=== PATIENT | male | born 1965 | race Caucasian/White ===

== ENCOUNTER 2017-12-06 04:12 | Emergency (ER) | payer BC, OTHER ==
[2017-12-06] MEDS ORDERED: FAMOTIDINE 20 MG/2 ML VIAL IV ONE (04:39)
[2017-12-06] MEDS ORDERED: NA CHLORIDE 0.9% 1,000 ML ONE ×3 (04:40→05:53)
[2017-12-06 04:50] LABS: Absolute Lymphocytes (CBC) 3.6 K/uL (0.7-4.9); Absolute Neutrophil 7.9 K/uL (1.8-8.0); Basophils % 1.2 % (0-1.3); MCH 29.8 pg (27.0-35.0); MCV 91.8 fL (80-100); MPV 9.3 fL (7.6-11.3); Monocytes % 8.1 % (3.3-12.3); RBC Red Blood Cell Count 5.67 M/uL (4.33-5.43)
[2017-12-06] MEDS ORDERED: ONDANSETRON 4 MG/2 ML VIAL ONE (04:55)
[2017-12-06 05:27] LABS: Bicarbonate 19 mEq/L (21-31); Glucose Level 150 mg/dL (65-120); Lipase 27 U/L (22-51); Potassium 4.2 mEq/L (3.6-5.0); Sodium Level 141 mEq/L (135-145)
[2017-12-06 05:33] LABS: ALT/SGPT 30 IU/L (10-60); AST/SGOT 29 IU/L (10-42); Albumin 4.2 g/dL (3.2-5.5); Alkaline Phosphatase 82 IU/L (42-121); BUN Blood Urea Nitrogen 9 mg/dL (6-20); Bilirubin Direct 0.1 mg/dL (0-0.2); Bilirubin Total 0.5 mg/dL (0.3-1.2); Glomerular Filtration Rate > 90 mL/min (=/>90); Protein, Total 8.4 g/dL (6.0-8.3)
[2017-12-06] MEDS ORDERED: LORazepam 2 MG/ML VIAL ONE (05:38)
[2017-12-06] MEDS ORDERED: FENTANYL CITR 100 MCG/2 ML ONE (06:01)
--- NOTE | 2017-12-06 06:53 | EDPHYS ---
Physician Documentation [facility] Name: Osman Prasad Age: 52 yrs Sex: Male : 1965 Arrival Date: 12/06/2017 Time: 04:14 Bed 16 Private MD: Kiko Wright T ED Physician Daniel Em HPI: 12/06 05:10 This 52 yrs old Male presents to ER via Ambulatory with complaints of gs Vomiting - Blood. 05:10 The patient presents to the emergency department with nausea, vomiting, that is gs intermittent, described as specks of blood and yellow emesis. Onset: The symptoms/episode began/occurred yesterday. Possible causes: etoh abuse. The symptoms are aggravated by nothing. The symptoms are alleviated by nothing. Associated signs and symptoms: Pertinent negatives: abdominal pain, fever. Severity of symptoms: At their worst the symptoms were moderate in the emergency department the symptoms have improved moderately. The patient has experienced similar episodes in the past, a few times. The patient has not recently seen a physician. Historical: - Allergies: 04:31 No Known Allergies; aa1 - Home Meds: 04:31 unknown BP med [Active]; aa1 - PMHx: 04:31 Hypertension; aa1 - PSHx: 04:31 Hernia repair; aa1 - Immunization history:: Flu vaccine is not up to date. - Social history:: Smoking status: Patient uses tobacco products, smokes one pack cigarettes per day. ROS: 05:10 All other systems are negative. gs Exam: 05:10 Head/Face: Normocephalic, atraumatic. Eyes: Pupils equal round and reactive to light, gs extra-ocular motions intact. Lids and lashes normal. Conjunctiva and sclera are non-icteric and not injected. Cornea within normal limits. Periorbital areas with no swelling, redness, or edema. ENT: Nares patent. No nasal discharge, no septal abnormalities noted. Tympanic membranes are normal and external auditory canals are clear. Oropharynx with no redness, swelling, or masses, exudates, or evidence of obstruction, uvula midline. Mucous membranes moist. Neck: Trachea midline, no thyromegaly or masses palpated, and no cervical lymphadenopathy. Supple, full range of motion without nuchal rigidity, or vertebral point tenderness. No Meningismus. Chest/axilla: Normal chest wall appearance and motion. Nontender with no deformity. No lesions are appreciated. Respiratory: Lungs have equal breath sounds bilaterally, clear to auscultation and percussion. No rales, rhonchi or wheezes noted. No increased work of breathing, no retractions or nasal flaring. Back: No spinal tenderness. No costovertebral tenderness. Full range of motion. Skin: Warm, dry with normal turgor. Normal color with no rashes, no lesions, and no evidence of cellulitis. MS/ Extremity: Pulses equal, no cyanosis. Neurovascular intact. Full, normal range of motion. Neuro: Awake and alert, GCS 15, oriented to person, place, time, and situation. Cranial nerves II-XII grossly intact. Motor strength 5/5 in all extremities. Sensory grossly intact. Cerebellar exam normal. Normal gait. 05:10 Constitutional: The patient appears alert, awake, uncomfortable. 05:10 Cardiovascular: Rate: tachycardic, Rhythm: regular, Pulses: no pulse deficits are appreciated, Heart sounds: normal. 05:10 Abdomen/GI: Palpation: mild abdominal tenderness, in all quadrants, rebound tenderness, is not appreciated. Vital Signs: 04:31 BP 139 / 102; Pulse 126; Resp 20; Temp 97.9; Pulse Ox 96% on R/A; Weight 83.91 kg; aa1 Height 5 ft. 6 in. (167.64 cm); Pain 8/10; 06:00 BP 162 / 109; Pulse 107; Resp 16; Temp 98.2; Pulse Ox 95% on R/A; ag2 06:36 BP 141 / 97; Pulse 97; Resp 16; Pulse Ox 96% on R/A; Pain 0/10; ag2 07:13 BP 141 / 96; Pulse 97; Resp 18; Pulse Ox 99% on R/A; ea 04:31 Body Mass Index 29.86 (83.91 kg, 167.64 cm) aa1 MDM: 04:31 Patient medically screened. 05:10 Differential diagnosis: gastritis, pancreatitis, gastroenteritis, pud, variceal gs bleeding. Data reviewed: vital signs, nurses notes. 12/06 04:34 Order name: Basic Metabolic Panel; Complete Time: 05:38 gs 12/06 04:34 Order name: CBC with Diff; Complete Time: 05:38 12/06 04:34 Order name: Hepatic Function; Complete Time: 05:38 12/06 04:34 Order name: Lipase; Complete Time: 05:38 12/06 05:54 Order name: CT Abd/Pelvis - Without Cont 12/06 04:34 Order name: IV Saline Lock; Complete Time: 04:45 gs 12/06 04:34 Order name: Labs collected and sent; Complete Time: 04:45 gs Administered Medications: 04:43 Drug: Pepcid 20 mg Route: IVP; Site: left hand; ea 06:08 Follow up: Response: No adverse reaction ea 04:44 Drug: NS 0.9% 1000 ml Route: IV; Rate: 1 bolus; Site: left hand; ea 05:55 Follow up: Response: No adverse reaction; IV Status: Completed infusion; IV Intake: ea 1000ml 05:04 Drug: Zofran 4 mg Route: IVP; Site: left antecubital; ea 06:08 Follow up: Response: No adverse reaction ea 05:45 Drug: Ativan 1 mg Route: IVP; Site: left hand; ea 06:09 Follow up: Response: No adverse reaction ea 05:59 Drug: NS 0.9% 1000 ml Route: IV; Rate: 1 bolus; Site: left hand; ea 07:11 Follow up: Response: No adverse reaction; IV Status: Completed infusion; IV Intake: ea 1000ml 06:00 Drug: Ativan 1 mg Route: IVP; Site: left hand; ea 06:09 Follow up: Response: No adverse reaction ea 06:07 Drug: fentaNYL (PF) 50 mcg Route: IVP; Site: left hand; ea 07:12 Follow up: Response: No adverse reaction; Pain is decreased ea Disposition: 12/06/17 06:52 Discharged to Home. Impression: Gastritis, unspecified, with bleeding. - Condition is Stable. - Discharge Instructions: Gastritis, Adult, Alcohol Abuse and Nutrition. - Prescriptions for Pepcid 20 mg Oral Tablet - take 1 tablet by ORAL route every 12 hours for 10 days; 60 tablet. - Medication Reconciliation Form, Thank You Letter, Antibiotic Education, Prescription Opioid Use, SBAR form form. - Follow up: Demetria Isaac; When: 2 - 3 days; Reason: Re-evaluation by your physician. - Problem is an acute exacerbation. - Symptoms have improved. Signatures: Dispatcher [employer] EDMS Reis Elvie, RN RN aa1 Karina Soria RN RN ea Daniel Em MD MD gs
--- NOTE | 2017-12-06 06:53 | ER ---
Nurse's Notes [facility] Name: Osman Prasad Age: 52 yrs Sex: Male : 1965 Arrival Date: 12/06/2017 Time: 04:14 Bed 16 Private MD: Kiko Wright T Diagnosis: Gastritis, unspecified, with bleeding Presentation: 12/06 04:28 Presenting complaint: Patient states: he had been drinking rather heavily last night aa1 and began having significant upper abd pain and vomiting around midnight. Reports seeing blood in his vomit as well. Transition of care: patient was not received from another setting of care. Onset of symptoms was December 06, 2017. Care prior to arrival: None. 04:28 Method Of Arrival: Ambulatory aa1 04:28 Acuity: ISIS 3 aa1 Triage Assessment: 04:31 General: Appears in no apparent distress. uncomfortable, Behavior is calm, cooperative, aa1 appropriate for age. Historical: - Allergies: 04:31 No Known Allergies; aa1 - Home Meds: 04:31 unknown BP med [Active]; aa1 - PMHx: 04:31 Hypertension; aa1 - PSHx: 04:31 Hernia repair; aa1 - Immunization history:: Flu vaccine is not up to date. - Social history:: Smoking status: Patient uses tobacco products, smokes one pack cigarettes per day. Screenin:45 Abuse screen: Denies threats or abuse. Nutritional screening: No deficits noted. ea Tuberculosis screening: No symptoms or risk factors identified. Fall Risk None identified. Assessment: 04:41 General: Appears in no apparent distress. ill, Behavior is cooperative, anxious, Smells ag2 of alcohol. Pain: Complains of pain in abdomen Pain does not radiate. Pain currently is 8 out of 10 on a pain scale. Quality of pain is described as aching, Pain began Patient stated that " I have been dealing with this abdominal pain for the last 3 years". Is intermittent. Neuro: Level of Consciousness is awake, alert, obeys commands, Oriented to person, place, time, situation, Compound Filler are equal bilaterally Moves all extremities. Cardiovascular: Heart tones S1 S2 present Capillary refill < 3 seconds Pulses are all present. Respiratory: Airway is patent Breath sounds are clear bilaterally. GI: No signs and/or symptoms were reported involving the gastrointestinal system. Abdomen is round Pt is actively vomiting clear fluid, Abd is soft X 4 quads Abdomen is tender to palpation X 4 quads. Reports nausea, vomiting, Patient currently denies diarrhea. : No signs and/or symptoms were reported regarding the genitourinary system. 06:01 Reassessment: Patient laying in bed with eyes closed. No s/s of distress. mother at ag2 bedside. Call light within reach, bed low and locked. . 07:15 Reassessment: Patient and/or family updated on plan of care and expected duration. Pain ea level reassessed. Patient is alert, oriented x 3, equal unlabored respirations, skin warm/dry/pink. Discharge instructions given to patient, verbalized the understanding of instructions. Vital Signs: 04:31 BP 139 / 102; Pulse 126; Resp 20; Temp 97.9; Pulse Ox 96% on R/A; Weight 83.91 kg; aa1 Height 5 ft. 6 in. (167.64 cm); Pain 8/10; 06:00 BP 162 / 109; Pulse 107; Resp 16; Temp 98.2; Pulse Ox 95% on R/A; ag2 06:36 BP 141 / 97; Pulse 97; Resp 16; Pulse Ox 96% on R/A; Pain 0/10; ag2 07:13 BP 141 / 96; Pulse 97; Resp 18; Pulse Ox 99% on R/A; ea 04:31 Body Mass Index 29.86 (83.91 kg, 167.64 cm) aa1 ED Course: 04:14 Patient arrived in ED. am2 04:14 Kiko Wright MD is Private Physician. am2 04:23 Daniel Em MD is Attending Physician. gs 04:30 Triage completed. aa1 04:31 Arm band placed on left wrist. Patient placed in an exam room, on a stretcher. aa1 04:35 Inserted saline lock: 20 gauge in right hand, using aseptic technique. Blood collected. ea 04:40 Guillermina Preciado is Primary Nurse. ag2 04:46 Patient has correct armband on for positive identification. Bed in low position. Call ea light in reach. Side rails up X2. 04:50 No provider procedures requiring assistance completed. ag2 06:27 CT Abd/Pelvis - Without Cont In Process Unspecified. EDMS 06:52 Demetria Isaac MD is Referral Physician. gs 07:05 IV discontinued. ag2 Administered Medications: 04:43 Drug: Pepcid 20 mg Route: IVP; Site: left hand; ea 06:08 Follow up: Response: No adverse reaction ea 04:44 Drug: NS 0.9% 1000 ml Route: IV; Rate: 1 bolus; Site: left hand; ea 05:55 Follow up: Response: No adverse reaction; IV Status: Completed infusion; IV Intake: ea 1000ml 05:04 Drug: Zofran 4 mg Route: IVP; Site: left antecubital; ea 06:08 Follow up: Response: No adverse reaction ea 05:45 Drug: Ativan 1 mg Route: IVP; Site: left hand; ea 06:09 Follow up: Response: No adverse reaction ea 05:59 Drug: NS 0.9% 1000 ml Route: IV; Rate: 1 bolus; Site: left hand; ea 07:11 Follow up: Response: No adverse reaction; IV Status: Completed infusion; IV Intake: ea 1000ml 06:00 Drug: Ativan 1 mg Route: IVP; Site: left hand; ea 06:09 Follow up: Response: No adverse reaction ea 06:07 Drug: fentaNYL (PF) 50 mcg Route: IVP; Site: left hand; ea 07:12 Follow up: Response: No adverse reaction; Pain is decreased ea Intake: 05:55 IV: 1000ml; Total: 1000ml. ea 07:11 IV: 1000ml; Total: 2000ml. ea Outcome: 06:52 Discharge ordered by . 07:05 Discharged to home ambulatory, with family. ag2 07:05 Condition: stable 07:05 Discharge instructions given to patient, family, Instructed on discharge instructions, follow up and referral plans. 07:16 Patient left the ED. ea Signatures: Dispatcher [employer] EDMS Elvie Reis RN RN aa1 Shabnam Suero am2 Karina Soria RN RN ea Starr, Gregory, MD MD gs Garcia, Athena ag2
[2017-12-06 07:24] VITALS: TEMP 98.2
[2017-12-06 07:26] VITALS: BP 141/96; O2SAT 99
--- NOTE | 2017-12-06 08:40 | RAD REPORT ---
EXAM DESCRIPTION: CT - Abdomen Pelvis Wo Contrast - 12/06/2017 6:57 am CLINICAL HISTORY: Abdominal pain. COMPARISON: None TECHNIQUE: CT imaging of the abdomen and pelvis was performed without contrast. Solid organ, bowel a nd vascular assessment is limited due to lack of IV and oral contrast. All CT scans are performed using dose optimization technique as appropriate and may include automated exposure control or mA/KV adjustment according to patient size. FINDINGS: The lower lung nguyen are clear.Small hiatal hernia. The liver, spleen, pancreas, adrenal glands and kidneys are within normal limits for a limited non-co ntrast examination. No bowel obstruction, free air, free fluid or abscess. Prominent sigmoid diverticulosis coli without diverticulitis. The appendix is normal. The osseous structures are within normal limits. IMPRESSION: No acute intra-abdominal or pelvic findings. A limited non-contrast examination was performed as detailed.
== END 2017-12-06 07:16 | disposition home or self-care (01) ==
LOC: ER 04:12
DX: K29.71 Gastritis, unspecified, with bleeding (principal); I10 Essential (primary) hypertension; F17.210 Nicotine dependence, cigarettes, uncomplicated
CPT/HCPCS: 36415; 74176; 80048; 80076; 83690; 85025; 99284; J2405; J3010; J7030

== ENCOUNTER 2018-01-17 17:31 | Emergency (ER) | payer BC ==
[2018-01-17 18:22] LABS: Absolute Lymphocytes (CBC) 3.4 K/uL (0.7-4.9); Absolute Monocytes 0.9 K/uL (0.1-1.3); Absolute Neutrophil 8.4 K/uL (1.8-8.0); Hematocrit 45.6 % (39.6-49.0); MCH 29.2 pg (27.0-35.0); MCV 89.4 fL (80-100); MPV 9.3 fL (7.6-11.3)
[2018-01-17 18:35] LABS: Protime INR 1.01
[2018-01-17 18:36] LABS: Bicarbonate 24 mEq/L (21-31); Glucose Level 108 mg/dL (65-120); Potassium 3.7 mEq/L (3.6-5.0); Sodium Level 136 mEq/L (135-145)
--- NOTE | 2018-01-17 18:41 | RAD REPORT ---
EXAM DESCRIPTION: CT - Head Brain Wo Cont - 01/17/2018 6:19 pm CLINICAL HISTORY: Headache COMPARISON: 2012 TECHNIQUE: Computed axial tomography of the head was obtained. IV contrast was not requested. All CT scans are performed using dose optimization technique as appropriate and may include automated exposure control or mA/KV adjustment according to patient size. FINDINGS: An intracranial bleed is not seen . The ventricles are normal in caliber. No extra-axial fluid collection is noted. Fluid within the sinuses/ mastoids is not seen. IMPRESSION: No acute intracranial abnormality is seen. If patient's symptoms persist MRI of the bra in would be recommended.
[2018-01-17 18:42] LABS: ALT/SGPT 17 IU/L (10-60); AST/SGOT 21 IU/L (10-42); Albumin 3.9 g/dL (3.2-5.5); Alkaline Phosphatase 68 IU/L (42-121); BUN Blood Urea Nitrogen 10 mg/dL (6-20); Bilirubin Direct 0.1 mg/dL (0-0.2); Bilirubin Total 0.6 mg/dL (0.3-1.2); Protein, Total 7.4 g/dL (6.0-8.3)
[2018-01-17] MEDS ORDERED: cloNIDine HCl 0.1 MG TAB ONE (18:47)
[2018-01-17] MEDS ORDERED: NA CHLORIDE 0.9% 500 ML ONE (19:23)
[2018-01-17] MEDS ORDERED: METOCLOPRAMIDE 10 MG/2mL INJ ONE (19:23)
[2018-01-17] MEDS ORDERED: KETOROLAC 30 MG/ML INJ ONE (19:23)
[2018-01-17] MEDS ORDERED: DIPHENHYDRAMINE 50 MG/ML VIAL ONE (19:23)
--- NOTE | 2018-01-17 20:04 | ER ---
Nurse's Notes [facility] Name: Osman Prasad Age: 52 yrs Sex: Male : 1965 Arrival Date: 01/17/2018 Time: 17:34 Bed 27 Private MD: Kiko Wright T Diagnosis: Headache;Essential (primary) hypertension Presentation: 01/17 17:36 Presenting complaint: Patient states: " I wasn't feeling right so we took my BP and it ph 202/110." Pt reports headache, blurred and slight dizziness, denies chest pain or SOB. Transition of care: patient was not received from another setting of care. Onset of symptoms was January 17, 2018. Risk Assessment: Do you want to hurt yourself or someone else? Patient reports no desire to harm self or others. Initial Sepsis Screen: Does the patient meet any 2 criteria? No. Patient's initial sepsis screen is negative. Does the patient have a suspected source of infection? No. Patient's initial sepsis screen is negative. Care prior to arrival: None. 17:36 Method Of Arrival: Ambulatory ph 17:36 Acuity: ISIS 3 ph Historical: - Allergies: 17:39 No Known Allergies; ph - Home Meds: 17:39 unknown BP med [Active]; ph - PMHx: 17:39 Hypertension; ph - PSHx: 17:39 Hernia repair; ph - Immunization history:: Adult Immunizations unknown. - Social history:: Smoking status: Patient uses tobacco products, smokes one-half pack cigarettes per day. - Ebola Screening: : No symptoms or risks identified at this time. Screenin:00 Abuse screen: Denies threats or abuse. Nutritional screening: No deficits noted. mb3 Tuberculosis screening: No symptoms or risk factors identified. Fall Risk None identified. Assessment: 17:59 General: Appears distressed, well groomed, Behavior is calm, cooperative, appropriate mb3 for age. Pain: Complains of pain in top of head and forehead. Neuro: Level of Consciousness is awake, alert, obeys commands, Oriented to person, place, time, situation, Appropriate for age Reports headache. Cardiovascular: Denies chest pain, Heart tones S1 S2 present Capillary refill < 3 seconds Patient's skin is warm and dry. Respiratory: Airway is patent Respiratory effort is even, unlabored, Respiratory pattern is regular, symmetrical. GI: Abdomen is flat, Bowel sounds present X 4 quads. Abd is soft and non tender. : No signs and/or symptoms were reported regarding the genitourinary system. EENT: No signs and/or symptoms were reported regarding the EENT system. Derm: No signs and/or symptoms reported regarding the dermatologic system. Musculoskeletal: No signs and/or symptoms reported regarding the musculoskeletal system. 19:15 Reassessment: Patient appears in no apparent distress at this time. Patient and/or kr2 family updated on plan of care and expected duration. Pain level reassessed. Patient is alert, oriented x 3, equal unlabored respirations, skin warm/dry/pink. Patient complains of headache with pain rated a 7/10. RAFAEL Vargas notified. Vital Signs: 17:38 BP 186 / 114; Pulse 102; Resp 18; Temp 98.7; Pulse Ox 97% on R/A; Weight 88.45 kg; ph Height 5 ft. 8 in. (172.72 cm); Pain 7/10; 19:00 BP 177 / 110; Pulse 94; Resp 18; Pulse Ox 97% ; mb3 20:23 BP 174 / 99; Pulse 94; Resp 18; Pulse Ox 99% on R/A; kr2 17:38 Body Mass Index 29.65 (88.45 kg, 172.72 cm) ph ED Course: 17:34 Patient arrived in ED. es 17:34 Kiko Wright MD is Private Physician. es 17:38 Triage completed. ph 17:39 Arm band placed on. ph 17:42 Darian Tai, JOSH is Primary Nurse. mb3 17:42 Micah Strickland NP is PHCP. pm1 17:43 Palomo Denis MD is Attending Physician. pm1 17:58 Inserted saline lock: 20 gauge in right forearm, using aseptic technique. Blood mb3 collected. 18:01 Patient has correct armband on for positive identification. Bed in low position. Call mb3 light in reach. Side rails up X 1. Pulse ox on. NIBP on. 18:[address] via wheelchair. mw3 18:19 CT Head Brain wo Cont In Process Unspecified. EDMS 18:19 CT completed. Patient tolerated procedure well. Patient moved back from CT. mw3 20:03 Kiko Wright MD is Referral Physician. pm1 20:23 No provider procedures requiring assistance completed. IV discontinued, intact, kr2 bleeding controlled, No redness/swelling at site. Pressure dressing applied. Administered Medications: 18:49 Drug: cloNIDine 0.2 mg Route: PO; mb3 20:25 Follow up: Response: No adverse reaction kr2 20:25 Follow up: Response: Blood pressure is lowered kr2 19:28 Drug: Reglan 10 mg Route: IVP; Site: right antecubital; kr2 20:24 Follow up: Response: No adverse reaction kr2 19:28 Drug: Benadryl 25 mg Route: IVP; Site: right antecubital; kr2 20:24 Follow up: Response: No adverse reaction kr2 19:28 Drug: TORadol 30 mg Route: IVP; Site: right antecubital; kr2 20:24 Follow up: Response: No adverse reaction; Pain is decreased kr2 19:28 Drug: NS 0.9% 500 ml Route: IV; Rate: bolus; Site: right antecubital; kr2 20:24 Follow up: Response: No adverse reaction; IV Status: Completed infusion kr2 Outcome: 20:04 Discharge ordered by MD. pm1 20:23 Discharged to home ambulatory, with family. kr2 20:23 Condition: good 20:23 Discharge instructions given to family, Instructed on discharge instructions, follow up and referral plans. Demonstrated understanding of instructions, follow-up care. 20:25 Patient left the ED. kr2 Signatures: Dispatcher [employer] Prudence Rudolph Patricia, RN RN ph Marinas, Patrick, [facility] [employer] INFORMATION ADMINISTRATOR pm1 Carmen Kelly RN RN kr2 Darian Tai RN RN mb3 Ashley Flores mw3
--- NOTE | 2018-01-17 20:04 | EDPHYS ---
Physician Documentation [facility] Name: Osman Prasad Age: 52 yrs Sex: Male : 1965 Arrival Date: 01/17/2018 Time: 17:34 Bed 27 Private MD: Kiko Wright T ED Physician Palomo Denis HPI: 01/17 22:00 This 52 yrs old Male presents to ER via Ambulatory with complaints of High pm1 Blood Pressure. 22:00 The patient has elevated blood pressure and discovered this at home, with a home pm1 device. Onset: The symptoms/episode began/occurred today. Modifying factors: The symptoms are aggravated by Emotional Stress. Associated signs and symptoms: Pertinent positives: headache, Pertinent negatives: chest pain. Severity of symptoms: in the emergency department the blood pressure is improved. The patient has been recently seen by a physician: the patient's primary care provider, last week for hypertension and Bp medication increased. Historical: - Allergies: 17:39 No Known Allergies; ph - Home Meds: 17:39 unknown BP med [Active]; ph - PMHx: 17:39 Hypertension; ph - PSHx: 17:39 Hernia repair; ph - Immunization history:: Adult Immunizations unknown. - Social history:: Smoking status: Patient uses tobacco products, smokes one-half pack cigarettes per day. - Ebola Screening: : No symptoms or risks identified at this time. ROS: 22:00 Constitutional: Negative for fever, chills, and weight loss, Eyes: Negative for injury, pm1 pain, redness, and discharge, ENT: Negative for injury, pain, and discharge, Neck: Negative for injury, pain, and swelling, Cardiovascular: Negative for chest pain, palpitations, and edema, Respiratory: Negative for shortness of breath, cough, wheezing, and pleuritic chest pain, Abdomen/GI: Negative for abdominal pain, nausea, vomiting, diarrhea, and constipation, Back: Negative for injury and pain, : Negative for injury, bleeding, discharge, and swelling, MS/Extremity: Negative for injury and deformity, Skin: Negative for injury, rash, and discoloration. 22:00 Neuro: Positive for headache, Negative for dizziness. Exam: 22:00 Constitutional: This is a well developed, well nourished patient who is awake, alert, pm1 and in no acute distress. Head/Face: Normocephalic, atraumatic. Eyes: Pupils equal round and reactive to light, extra-ocular motions intact. Lids and lashes normal. Conjunctiva and sclera are non-icteric and not injected. Cornea within normal limits. Periorbital areas with no swelling, redness, or edema. ENT: Nares patent. No nasal discharge, no septal abnormalities noted. Tympanic membranes are normal and external auditory canals are clear. Oropharynx with no redness, swelling, or masses, exudates, or evidence of obstruction, uvula midline. Mucous membranes moist. Neck: Trachea midline, no thyromegaly or masses palpated, and no cervical lymphadenopathy. Supple, full range of motion without nuchal rigidity, or vertebral point tenderness. No Meningismus. Chest/axilla: Normal chest wall appearance and motion. Nontender with no deformity. No lesions are appreciated. Cardiovascular: Regular rate and rhythm with a normal S1 and S2. No gallops, murmurs, or rubs. Normal PMI, no JVD. No pulse deficits. Respiratory: Lungs have equal breath sounds bilaterally, clear to auscultation and percussion. No rales, rhonchi or wheezes noted. No increased work of breathing, no retractions or nasal flaring. Abdomen/GI: Soft, non-tender, with normal bowel sounds. No distension or tympany. No guarding or rebound. No evidence of tenderness throughout. Back: No spinal tenderness. No costovertebral tenderness. Full range of motion. Skin: Warm, dry with normal turgor. Normal color with no rashes, no lesions, and no evidence of cellulitis. MS/ Extremity: Pulses equal, no cyanosis. Neurovascular intact. Full, normal range of motion. 22:00 Neuro: Orientation: is normal, Mentation: is normal, Cranial nerves: CN II- XII are normal as tested, Cerebellar function: normal finger to nose testing, Motor: moves all fours, Sensation: is normal, no obvious gross deficits, Gait: is steady, at a normal pace, without difficulty. Vital Signs: 17:38 BP 186 / 114; Pulse 102; Resp 18; Temp 98.7; Pulse Ox 97% on R/A; Weight 88.45 kg; ph Height 5 ft. 8 in. (172.72 cm); Pain 7/10; 19:00 BP 177 / 110; Pulse 94; Resp 18; Pulse Ox 97% ; mb3 20:23 BP 174 / 99; Pulse 94; Resp 18; Pulse Ox 99% on R/A; kr2 17:38 Body Mass Index 29.65 (88.45 kg, 172.72 cm) ph MDM: 17:55 Patient medically screened. pm1 20:03 Data reviewed: vital signs. Data interpreted: Pulse oximetry: on room air is 97 %. pm1 Interpretation: normal. Counseling: I had a detailed discussion with the patient and/or guardian regarding: the historical points, exam findings, and any diagnostic results supporting the discharge/admit diagnosis, lab results, radiology results, the need for outpatient follow up, to return to the emergency department if symptoms worsen or persist or if there are any questions or concerns that arise at home. 01/17 18:09 Order name: Basic Metabolic Panel; Complete Time: 18:44 pm1 01/17 18:09 Order name: CBC with Diff; Complete Time: 18:25 pm1 01/17 18:07 Order name: CT Head Brain wo Cont; Complete Time: 18:44 pm1 01/17 18:09 Order name: LFT's; Complete Time: 18:44 pm1 01/17 18:09 Order name: PT-INR; Complete Time: 18:44 pm1 01/17 18:09 Order name: Ptt, Activated; Complete Time: 18:44 pm1 01/17 18:09 Order name: EKG - Nurse/Tech; Complete Time: 18:52 pm1 01/17 18:09 Order name: IV Saline Lock; Complete Time: 18:52 pm1 01/17 18:09 Order name: Labs collected and sent; Complete Time: 18:52 pm1 Administered Medications: 18:49 Drug: cloNIDine 0.2 mg Route: PO; mb3 20:25 Follow up: Response: No adverse reaction kr2 20:25 Follow up: Response: Blood pressure is lowered kr2 19:28 Drug: Reglan 10 mg Route: IVP; Site: right antecubital; kr2 20:24 Follow up: Response: No adverse reaction kr2 19:28 Drug: Benadryl 25 mg Route: IVP; Site: right antecubital; kr2 20:24 Follow up: Response: No adverse reaction kr2 19:28 Drug: TORadol 30 mg Route: IVP; Site: right antecubital; kr2 20:24 Follow up: Response: No adverse reaction; Pain is decreased kr2 19:28 Drug: NS 0.9% 500 ml Route: IV; Rate: bolus; Site: right antecubital; kr2 20:24 Follow up: Response: No adverse reaction; IV Status: Completed infusion kr2 Disposition: 01/18 09:33 Co-signature as Attending Physician, Palomo Denis MD I agree with the assessment and eufemia plan of care. Disposition: 01/17/18 20:04 Discharged to Home. Impression: Headache, Essential (primary) hypertension. - Condition is Stable. - Discharge Instructions: General Headache Without Cause, Hypertension, How to Take Your Blood Pressure, Hqkz-[id number]-Ggby, DASH Eating Plan, Managing Your High Blood Pressure. - Medication Reconciliation Form, Thank You Letter form. - Follow up: Emergency Department; When: As needed; Reason: Worsening of condition. Follow up: Kiko Wright MD; When: 2 - 3 days; Reason: Recheck today's complaints, Continuance of care, Re-evaluation by your physician. - Problem is new. - Symptoms have improved. Signatures: Dispatcher [employer] EDMS Palomo Denis MD MD cha Hall, Patricia, RN RN ph Micah Strickland, RAFA[employer] ORIGINATOR pm1 Carmen Kelly RN RN kr2 Darian Tai RN RN mb3 Corrections: (The following items were deleted from the chart) 01/17 20:25 20:04 01/17/2018 20:04 Discharged to Home. Impression: Headache; Essential (primary) kr2 hypertension. Condition is Stable. Forms are Medication Reconciliation Form, Thank You Letter, Antibiotic Education, Prescription Opioid Use. Follow up: Emergency Department; When: As needed; Reason: Worsening of condition. Follow up: Kiko Wright; When: 2 - 3 days; Reason: Recheck today's complaints, Continuance of care, Re-evaluation by your physician. Problem is new. Symptoms have improved. pm1
[2018-01-17 20:33] VITALS: TEMP 98.7
[2018-01-17 20:36] VITALS: BP 174/99; O2SAT 99
== END 2018-01-17 20:25 | disposition home or self-care (01) ==
LOC: ER 17:31
DX: I10 Essential (primary) hypertension (principal); F17.210 Nicotine dependence, cigarettes, uncomplicated
CPT/HCPCS: 36415; 70450; 80048; 80076; 85025; 85610; 85730; 96361; 96374; 96375; 99284; J2765

== ENCOUNTER 2020-03-05 05:31 | Emergency (ER) | payer BC ==
[2020-03-05] MEDS ORDERED: carvediloL 6.25 MG TAB ONE (07:03)
--- NOTE | 2020-03-05 08:02 | EDPHYS ---
Physician Documentation [facility] Name: Osman Prasad Age: 54 yrs Sex: Male : 1965 Arrival Date: 03/05/2020 Time: 05:34 Bed 17 Private MD: ED Physician Ham Del Rio HPI: 03/05 06:33 This 54 yrs old Male presents to ER via Unassigned with complaints of High kb Blood Pressure. 06:33 The patient has elevated blood pressure and discovered this at home, with a home kb device. Onset: The symptoms/episode began/occurred last night. Modifying factors: The symptoms are aggravated by discontinuation of meds. Associated signs and symptoms: Pertinent positives: lightheadedness, Pertinent negatives: chest pain, dizziness, dyspnea, headache, nausea, visual changes, vomiting, weakness. Severity of symptoms: At its worst the blood pressure was 190 mm Hg, in the emergency department the blood pressure is are actually worse, 214 mm Hg. The patient has experienced similar episodes in the past, chronically. The patient has not recently seen a physician. Pt reports his blood pressure has been high since last night. States he has been out of his BP medication for a few days and has been unable to contact his PCP (Dr Wright). Denies any symptoms at this time. States he gets lightheaded at times when he's working in the heat. . Historical: - Allergies: 06:33 No Known Allergies; jb4 - Home Meds: 06:33 carvedilol 3.125 mg oral tab 1 tab 2 times per day [Active]; jb4 - PMHx: 06:33 Hypertension; jb4 - PSHx: 06:33 None; jb4 - Immunization history:: Adult Immunizations up to date. - Social history:: Smoking status: Patient reports the use of cigarette tobacco products, smokes one-half pack cigarettes per day, Patient uses alcohol, admits to "couple of beers" a day. Patient/guardian denies using street drugs. ROS: 06:33 Constitutional: Negative for fever, chills, and weight loss, Neck: Negative for injury, kb pain, and swelling, Cardiovascular: Negative for chest pain, palpitations, and edema, Respiratory: Negative for shortness of breath, cough, wheezing, and pleuritic chest pain, Abdomen/GI: Negative for abdominal pain, nausea, vomiting, diarrhea, and constipation, Back: Negative for injury and pain, MS/Extremity: Negative for injury and deformity, Skin: Negative for injury, rash, and discoloration, Neuro: Negative for headache, weakness, numbness, tingling, and seizure. Exam: 06:33 Constitutional: This is a well developed, well nourished patient who is awake, alert, kb and in no acute distress. Head/Face: Normocephalic, atraumatic. Neck: Trachea midline, no thyromegaly or masses palpated, and no cervical lymphadenopathy. Supple, full range of motion without nuchal rigidity, or vertebral point tenderness. No Meningismus. Chest/axilla: Normal chest wall appearance and motion. Nontender with no deformity. No lesions are appreciated. Cardiovascular: Regular rate and rhythm with a normal S1 and S2. No gallops, murmurs, or rubs. Normal PMI, no JVD. No pulse deficits. Respiratory: Lungs have equal breath sounds bilaterally, clear to auscultation and percussion. No rales, rhonchi or wheezes noted. No increased work of breathing, no retractions or nasal flaring. Abdomen/GI: Soft, non-tender, with normal bowel sounds. No distension or tympany. No guarding or rebound. No evidence of tenderness throughout. Skin: Warm, dry with normal turgor. Normal color with no rashes, no lesions, and no evidence of cellulitis. MS/ Extremity: Pulses equal, no cyanosis. Neurovascular intact. Full, normal range of motion. Neuro: Awake and alert, GCS 15, oriented to person, place, time, and situation. Cranial nerves II-XII grossly intact. Motor strength 5/5 in all extremities. Sensory grossly intact. Cerebellar exam normal. Normal gait. Vital Signs: 06:30 BP 214 / 118; Pulse 85; Resp 16; Temp 97.4(TE); Pulse Ox 100% on R/A; Weight 99.79 kg jb4 (R); Height 5 ft. 6 in. (167.64 cm); Pain 4/10; 07:34 BP 178 / 105; Pulse 84; Resp 16; Pulse Ox 97% on R/A; iw 07:55 BP 166 / 102; Pulse 83; iw 08:06 BP 173 / 94; Pulse 87; iw 06:30 Body Mass Index 35.51 (99.79 kg, 167.64 cm) jb4 MDM: 06:29 Patient medically screened. kb 06:35 Data reviewed: vital signs, nurses notes. Data interpreted: Pulse oximetry: on room air kb is 100 %. Interpretation: normal. 06:53 ED course: Pt retrieved prescription bottle from car. Pt takes Carvedilol 3.125mg BID. kb Will refill this medication now and pt will follow up with PCP. 07:57 Counseling: I had a detailed discussion with the patient and/or guardian regarding: the kb historical points, exam findings, and any diagnostic results supporting the discharge/admit diagnosis, the need for outpatient follow up, a family practitioner, to return to the emergency department if symptoms worsen or persist or if there are any questions or concerns that arise at home. 07:58 ED course: Pt continues to be asymptomatic. BP is improving after administration of kb home med. Pt educated to take BP meds as prescribed, keep blood pressure log, and follow up with PCP for management of HTN. . 03/05 07:16 Order name: Blood Pressure Recheck: check every 30 minutes please; Complete Time: 07:48 kb Administered Medications: 07:01 Drug: carvedilol 3.125 mg Route: PO; jb4 Disposition: 19:45 Co-signature as Attending Physician, Ham Del Rio MD. [email or web address] Disposition: 03/05/20 08:01 Discharged to Home. Impression: Essential (primary) hypertension. - Condition is Stable. - Discharge Instructions: Hypertension, [id number], How to Take Your Blood Pressure, [id number], Managing Your Hypertension. - Prescriptions for carvedilol 3.125 mg Oral tablet - take 1 tablet by ORAL route 2 times per day with food; 60 tablet. - Medication Reconciliation Form, Thank You Letter, Antibiotic Education, Prescription Opioid Use, Work release form form. - Follow up: Private Physician; When: 2 - 3 days; Reason: Recheck today's complaints, Continuance of care, Re-evaluation by your physician. Follow up: Emergency Department; When: As needed; Reason: Worsening of condition. Signatures: Carrie Abdullahi, AMRIT CONLEY-Syeda Lorenz RN RN iw Bryson, James, RN RN jb4 Ham Del Rio MD MD [email or web address] Corrections: (The following items were deleted from the chart) 08:26 08:01 03/05/2020 08:01 Discharged to Home. Impression: Essential (primary) iw hypertension. Condition is Stable. Prescriptions for carvedilol 3.125 mg Oral tablet - take 1 tablet by ORAL route 2 times per day with food; 60 tablet. and Forms are Medication Reconciliation Form, Thank You Letter, Antibiotic Education, Prescription Opioid Use. Follow up: Private Physician; When: 2 - 3 days; Reason: Recheck today's complaints, Continuance of care, Re-evaluation by your physician. Follow up: Emergency Department; When: As needed; Reason: Worsening of condition. kb
--- NOTE | 2020-03-05 08:02 | ER ---
Nurse's Notes [facility] Name: Osman Prasad Age: 54 yrs Sex: Male : 1965 Arrival Date: 03/05/2020 Time: 05:34 Bed 17 Private MD: Diagnosis: Essential (primary) hypertension Presentation: 03/05 06:30 Chief complaint: Patient states: It began 1 week ago. I have been taking my medicine. I jb4 noticed last week that it was not working as well. I ran out 3 days ago and now its even higher. It was 190/118 at home. 06:30 Coronavirus screen: Proceed with normal triage. Ebola Screen: No symptoms or risks jb4 identified at this time. Initial Sepsis Screen: Does the patient meet any 2 criteria? No. Patient's initial sepsis screen is negative. Does the patient have a suspected source of infection? No. Patient's initial sepsis screen is negative. Risk Assessment: Do you want to hurt yourself or someone else? Patient reports no desire to harm self or others. Onset of symptoms was February 27, 2020. Transition of care: patient was not received from another setting of care. 06:30 Method Of Arrival: Ambulatory jb4 06:30 Acuity: ISIS 3 jb4 Historical: - Allergies: 06:33 No Known Allergies; jb4 - Home Meds: 06:33 carvedilol 3.125 mg oral tab 1 tab 2 times per day [Active]; jb4 - PMHx: 06:33 Hypertension; jb4 - PSHx: 06:33 None; jb4 - Immunization history:: Adult Immunizations up to date. - Social history:: Smoking status: Patient reports the use of cigarette tobacco products, smokes one-half pack cigarettes per day, Patient uses alcohol, admits to "couple of beers" a day. Patient/guardian denies using street drugs. Screenin:33 Abuse screen: Denies threats or abuse. Nutritional screening: No deficits noted. jb4 Tuberculosis screening: No symptoms or risk factors identified. Fall Risk None identified. Assessment: 06:33 General: Appears in no apparent distress. comfortable, Behavior is calm, cooperative. jb4 Pain: Complains of pain in headache. Pain does not radiate. Pain currently is 4 out of 10 on a pain scale. Quality of pain is described as aching. Neuro: Level of Consciousness is awake, alert, obeys commands, Oriented to person, place, time, situation. Cardiovascular: Patient's skin is warm and dry. Respiratory: Airway is patent Respiratory effort is even, unlabored, Respiratory pattern is regular, symmetrical. GI: No signs and/or symptoms were reported involving the gastrointestinal system. : No signs and/or symptoms were reported regarding the genitourinary system. EENT: No signs and/or symptoms were reported regarding the EENT system. Derm: Skin is intact, Skin is pink, warm \\T\\ dry. Musculoskeletal: Circulation, motion, and sensation intact. Range of motion: intact in all extremities. 07:35 Reassessment: Patient appears in no apparent distress at this time. Patient and/or iw family updated on plan of care and expected duration. Pain level reassessed. Patient is alert, oriented x 3, equal unlabored respirations, skin warm/dry/pink. pt c/o headache 03/01, started about 6 days ago, has not had BP meds for 7 days. Vital Signs: 06:30 BP 214 / 118; Pulse 85; Resp 16; Temp 97.4(TE); Pulse Ox 100% on R/A; Weight 99.79 kg jb4 (R); Height 5 ft. 6 in. (167.64 cm); Pain 4/10; 07:34 BP 178 / 105; Pulse 84; Resp 16; Pulse Ox 97% on R/A; iw 07:55 BP 166 / 102; Pulse 83; iw 08:06 BP 173 / 94; Pulse 87; iw 06:30 Body Mass Index 35.51 (99.79 kg, 167.64 cm) jb4 ED Course: 05:34 Patient arrived in ED. cl3 06:29 Carrie Abdullahi FNP-C is PHCP. kb 06:29 Ham Del Rio MD is Attending Physician. kb 06:33 Arm band placed on right wrist. jb4 06:33 Patient has correct armband on for positive identification. Bed in low position. Call jb4 light in reach. Side rails up X 1. Pulse ox on. NIBP on. Door closed. Lights dimmed. Warm blanket given. 06:52 Ernesto Ferraro RN is Primary Nurse. jb4 07:14 Triage completed. jb4 08:26 No provider procedures requiring assistance completed. Patient did not have IV access iw during this emergency room visit. Administered Medications: 07: Drug: carvedilol 3.125 mg Route: PO; jb4 Outcome: 08: Discharge ordered by . jai 08:26 Patient left the ED. iw 08: Discharged to home ambulatory. iw 08: Condition: good 08: Discharge instructions given to patient, Instructed on discharge instructions, follow up and referral plans. medication usage, Demonstrated understanding of instructions, follow-up care, medications, Prescriptions given X 1. Signatures: Carrie Abdullahi, MANAGER MACHINE-C MANAGER MACHINE-Ckb Syeda Rodriguez, RN RN iw Ernesto Ferraro RN RN jb4 Karen Jacobs cl3 Corrections: (The following items were deleted from the chart) 07:56 07:55 BP 166 / 112; Pulse 83bpm; iw iw
[2020-03-05 08:45] VITALS: TEMP 97.4
[2020-03-05 08:46] VITALS: O2SAT 97
[2020-03-05 08:48] VITALS: BP 173/94
== END 2020-03-05 08:26 | disposition home or self-care (01) ==
LOC: ER 05:31
DX: I10 Essential (primary) hypertension (principal); F17.210 Nicotine dependence, cigarettes, uncomplicated
CPT/HCPCS: 99283

== ENCOUNTER 2020-04-13 22:14 | Emergency (ER) | payer BC ==
[2020-04-13 22:39] LABS: Absolute Lymphocytes (CBC) 4.2 K/uL (0.7-4.9); Basophils % 0.9 % (0-1.3); Hematocrit 45.6 % (39.6-49.0); Lymphocytes % 39.8 % (15.3-44.8); MPV 8.7 fL (7.6-11.3); RBC Red Blood Cell Count 4.94 M/uL (4.33-5.43)
[2020-04-13 22:41] LABS: Protime INR 0.91
[2020-04-13] MEDS ORDERED: NA CHLORIDE 0.9% 500 ML ONE (22:51)
[2020-04-13 22:58] LABS: ALT/SGPT 58 U/L (12-78); AST/SGOT 43 U/L (15-37); Albumin 3.4 g/dL (3.4-5.0); Alkaline Phosphatase 126 U/L (45-117); BUN Blood Urea Nitrogen 7 mg/dL (7-18); Bicarbonate 21 mmol/L (21-32); Bilirubin Direct < 0.1 mg/dL (0-0.2); Bilirubin Total 0.2 mg/dL (0.2-1.0); Glucose Level 149 mg/dL (74-106); Magnesium 2.3 mg/dL (1.8-2.4); NT PRO-BNP 30 pg/mL (<125); Potassium 3.6 mmol/L (3.5-5.1); Protein, Total 7.4 g/dL (6.4-8.2); Sodium Level 140 mmol/L (136-145); Troponin (Emerg Dept Use Only) < 0.02 ng/mL (0.0-0.045)
[2020-04-13] MEDS ORDERED: NA CHLORIDE 0.9% 1,000 ML ONE (23:20)
--- NOTE | 2020-04-14 00:43 | ER ---
Nurse's Notes [facility] Name: Osman Prasad Age: 54 yrs Sex: Male : 1965 Arrival Date: 04/13/2020 Time: 22:18 Bed 15 Private MD: Diagnosis: Alcohol use, unspecified with intoxication, uncomplicated;Dehydration;Chest pain, unspecified;Hypertension Presentation: 04/13 22:22 Chief complaint: EMS states: "the pt was having a headache for about 2-3 days, but here jd3 in the last 1.5 hrs has been having bad chest pain and fatigue. he has also been hypertensive with systolics in the 170's. we gave 324 of aspirin, 3 tabs of nitro and nitro past to left chest wall, as well as 4 of Zofran for nausea. we placed an 18 G IV to his right AC. the family also reported a recent binge of ETOH over the last couple of days. the only history reported was HTN.". Coronavirus screen: At this time, the client does not indicate any symptoms associated with coronavirus-19. Ebola Screen: Patient negative for fever greater than or equal to 101.5 degrees Fahrenheit, and additional compatible Ebola Virus Disease symptoms. Initial Sepsis Screen: Does the patient meet any 2 criteria? No. Patient's initial sepsis screen is negative. Does the patient have a suspected source of infection? No. Patient's initial sepsis screen is negative. Risk Assessment: Do you want to hurt yourself or someone else? Patient reports no desire to harm self or others. Onset of symptoms was April 13, 2020. 22:22 Method Of Arrival: EMS: [facility] jd3 22:22 Acuity: [facility] 3 jd3 Historical: - Allergies: 22:27 No Known Allergies; jd3 - Home Meds: 22:27 valsartan oral oral [Active]; jd3 - PMHx: 22:27 Hypertension; jd3 - PSHx: 22:27 None; jd3 - Immunization history:: Adult Immunizations up to date. - Social history:: Smoking status: Patient reports the use of cigarette tobacco products, denies chronic smoking, but will smoke occasionally. - Family history:: not pertinent. - Hospitalizations: : No recent hospitalization is reported. Screenin:24 Abuse screen: Denies threats or abuse. Denies injuries from another. Nutritional mg2 screening: No deficits noted. Tuberculosis screening: No symptoms or risk factors identified. Fall Risk IV access (20 points). Assessment: 22:23 General: Appears in no apparent distress. comfortable, Behavior is calm, cooperative. mg2 Pain: Complains of pain in chest. Neuro: Level of Consciousness is awake, alert, obeys commands, Oriented to person, place, time, situation. Cardiovascular: Capillary refill < 3 seconds. Respiratory: Airway is patent Respiratory effort is even, unlabored, Respiratory pattern is regular, symmetrical. GI: No signs and/or symptoms were reported involving the gastrointestinal system. : No signs and/or symptoms were reported regarding the genitourinary system. EENT: No signs and/or symptoms were reported regarding the EENT system. Derm: Skin is intact, is healthy with good turgor, Skin is flushed. Musculoskeletal: Circulation, motion, and sensation intact. Capillary refill < 3 seconds. 23:30 Reassessment: Patient appears in no apparent distress at this time. Patient and/or mg2 family updated on plan of care and expected duration. Pain level reassessed. Patient is alert, oriented x 3, equal unlabored respirations, skin warm/dry/pink. 04/14 01:10 Reassessment: patient spoke to her sister Lashaun thru phone and she will come to pick mg2 him up, Patient states feeling better. 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 Vital Signs: 04/13 22:27 BP 160 / 84; Pulse 93; Resp 18 S; Temp 97.7(O); Pulse Ox 100% on R/A; Weight 99.79 kg jd3 (R); Height 5 ft. 3 in. (160.02 cm) (R); Pain 7/10; 23:19 BP 149 / 89; Pulse 98; Resp 18; Pulse Ox 97% on R/A; mg2 23:48 BP 149 / 89; Pulse 98; Resp 19; Pulse Ox 98% on R/A; ea 04/14 00:59 BP 110 / 66; Pulse 97; Resp 18; Pulse Ox 100% on R/A; mg2 04/13 22:27 Body Mass Index 38.97 (99.79 kg, 160.02 cm) jd3 ED Course: 04/13 22:18 Patient arrived in ED. bp1 22:18 Dung Vasquez MD is Attending Physician. rn 22:22 Sonu Jason, JOSH is Primary Nurse. mg2 22:24 No provider procedures requiring assistance completed. Maintain EMS IV. Dressing mg2 intact. Good blood return noted. Site clean \\T\\ dry. Gauge \\T\\ site: 18 \\T\\ RAC. Patient maintains SpO2 saturation greater than 95% on room air. 22:25 Patient has correct armband on for positive identification. campus monitor on. Pulse mg2 ox on. NIBP on. 22:26 Triage completed. jd3 22:28 Arm band placed on. jd3 22:44 XRAY Chest (1 view) In Process Unspecified. EDMS 23:25 CT Head Brain wo Cont In Process Unspecified. EDMS 23:25 CT Aorta for Dissection In Process Unspecified. EDMS 08 01:10 IV discontinued, intact, bleeding controlled, No redness/swelling at site. Pressure mg2 dressing applied. Administered Medications: 04/13 22:40 Drug: NS 0.9% 500 ml Route: IV; Rate: bolus; Site: right antecubital; mg2 04/14 00:57 Follow up: Response: No adverse reaction; IV Status: Completed infusion; IV Intake: mg2 500ml 04/13 23:34 Drug: NS 0.9% 1000 ml Route: IV; Rate: 1000 ml; Site: right antecubital; ea 04/14 00:56 Follow up: Response: No adverse reaction; IV Status: Completed infusion; IV Intake: mg2 1000ml Intake: 00:56 IV: 1000ml; Total: 1000ml. mg2 00:57 IV: 500ml; Total: 1500ml. mg2 Outcome: 00:43 Discharge ordered by MD. rn 01:11 Discharged to home ambulatory. mg2 01:11 Condition: stable 01:11 Discharge instructions given to patient, Instructed on discharge instructions, follow up and referral plans. Demonstrated understanding of instructions, follow-up care. 01:11 Patient left the ED. mg2 Signatures: Dispatcher [employer] EDMS Dung Vasquez MD MD rn Antunez, Elena, RN RN ea Davies, Jonathon, RN RN jSonu Chavez, JOSH MORENO mg2 María Stone bp1
--- NOTE | 2020-04-14 00:44 | EDPHYS ---
Physician Documentation [facility] Name: Osman Prasad Age: 54 yrs Sex: Male : 1965 Arrival Date: 04/13/2020 Time: 22:18 Bed 15 Private MD: ED Physician Dung Vasquez HPI: 04/13 22:29 This 54 yrs old Male presents to ER via EMS with complaints of Chest Pain. rn 22:29 The patient or guardian reports chest pain that is located primarily in the substernal rn area. Onset: 1.5 hour(s) ago. The pain radiates to abdomen. The chest pain is described as aching. Duration: The patient or guardian reports a single episode, that is still ongoing. Modifying factors: The symptoms are alleviated by nothing. the symptoms are aggravated by nothing. Severity of pain: At its worst the pain was mild in the emergency department the pain is unchanged. The patient has experienced similar episodes in the past. Reports headache for weeks, frontal, throbbing, assoc with high blood pressure. Reports today walking to his truck after working outdoors and got lightheaded, reports jerking movement, no LOC, remembers all events, reports now 1.5 hours of chest pain, no help after Sl nitro/nitropaste/aspirin. Also reports left upper abd pain "going on for awhile". No fever/cough/vomiting. + non-bloody diarrhea. . Historical: - Allergies: 22:27 No Known Allergies; jd3 - Home Meds: 22:27 valsartan oral oral [Active]; jd3 - PMHx: 22:27 Hypertension; jd3 - PSHx: 22:27 None; jd3 - Immunization history:: Adult Immunizations up to date. - Social history:: Smoking status: Patient reports the use of cigarette tobacco products, denies chronic smoking, but will smoke occasionally. - Family history:: not pertinent. - Hospitalizations: : No recent hospitalization is reported. ROS: 22:37 Constitutional: Negative for fever, chills, and weight loss, Eyes: Negative for injury, rn pain, redness, and discharge, Neck: Negative for injury, pain, and swelling, Cardiovascular: Negative for palpitations, and edema, Respiratory: Negative for cough, wheezing, and pleuritic chest pain, Abdomen/GI: Negative for nausea, vomiting, and constipation, MS/Extremity: Negative for injury and deformity, Skin: Negative for injury, rash, and discoloration, Neuro: Negative for numbness, tingling, and seizure. Exam: 22:37 Constitutional: This is a well developed, well nourished patient who is awake, alert, rn and in no acute distress. Head/Face: Normocephalic, atraumatic. ENT: dry MM Neck: Trachea midline, no masses palpated, and no cervical lymphadenopathy. Supple, full range of motion without nuchal rigidity, or vertebral point tenderness. No Meningismus. Cardiovascular: Regular rate and rhythm. No pulse deficits. Respiratory: Speaking full sentences. No increased work of breathing, no retractions or nasal flaring. Abdomen/GI: soft, mild LUQ tenderness, no masses MS/ Extremity: Pulses equal, no cyanosis. Neurovascular intact. Full, normal range of motion. Equal circumference. Neuro: Awake and alert, GCS 15, oriented to person, place, time, and situation. Cranial nerves II-XII grossly intact. Motor strength 5/5 in all extremities. Sensory grossly intact. Cerebellar exam normal. 22:41 ECG was reviewed by the Attending Physician. rn Vital Signs: 22:27 BP 160 / 84; Pulse 93; Resp 18 S; Temp 97.7(O); Pulse Ox 100% on R/A; Weight 99.79 kg jd3 (R); Height 5 ft. 3 in. (160.02 cm) (R); Pain 7/10; 23:19 BP 149 / 89; Pulse 98; Resp 18; Pulse Ox 97% on R/A; mg2 23:48 BP 149 / 89; Pulse 98; Resp 19; Pulse Ox 98% on R/A; ea 04/14 00:59 BP 110 / 66; Pulse 97; Resp 18; Pulse Ox 100% on R/A; mg2 04/13 22:27 Body Mass Index 38.97 (99.79 kg, 160.02 cm) jd3 MDM: 04/13 22:18 Patient medically screened. 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 CT head and aorta neg for acute findings. + elevated ETOH level. Recommended better diet and decreased ETOH consumption. . 04/14 00:36 Differential diagnosis: acute myocardial infarction, acute pericarditis, coronary rn artery disease chest wall pain, costochondritis, pericarditis, pleurisy, pneumonia, pneumothorax. Data reviewed: vital signs, nurses notes, lab test result(s), EKG, radiologic studies, CT scan, plain films, and as a result, I will discharge patient. 00:43 ED course: repeat trop neg. . rn 04/13 22:22 Order name: Basic Metabolic Panel; Complete [facility]: [facility]: [facility] [place] 04/13 22:22 Order name: CBC with Diff; Complete Time: 23: [facility] [place] 04/13 22:22 Order name: LFT's; Complete Time: 23: [facility] [place] 04/13 22:22 Order name: Magnesium; Complete Time: 23: [facility] [place] 04/13 22:22 Order name: NT PRO-BNP; Complete Time: 23: [facility] [place] 04/13 22:22 Order name: PT-INR; Complete Time: 23: [facility] [place] 04/13 22:22 Order name: Troponin (emerg Dept Use Only); Complete Time: 23: [facility] [place] 04/13 22:22 Order name: XRAY Chest (1 view) [facility] [place] 04/13 22:23 Order name: ETOH Level; Complete Time: 23:03 [facility] [place] 04/13 22:27 Order name: CT Head Brain wo Cont rn 04/13 22:31 Order name: Lipase; Complete Time: 23:01 rn 04/13 23:19 Order name: CREATININE WHOLE BLOOD; Complete Time: 23:22 EDMA 04/13 23:52 Order name: Troponin (emerg Dept Use Only) rn 04/13 23:52 Order name: Troponin (Emerg Dept Use Only); Complete Time: 00:43 EDMA 04/13 22:22 Order name: EKG; Complete Time: 22:23 [facility] [place] 04/13 22:22 Order name: Cardiac monitoring; Complete Time: 22: [facility] [place] 04/13 22:22 Order name: EKG - Nurse/Tech; Complete Time: 22: [facility] [place] 04/13 22:22 Order name: IV Saline Lock; Complete Time: 22:23 mg2 04/13 22:22 Order name: Labs collected and sent; Complete Time: 22: [facility] [place] 04/13 22:22 Order name: O2 Per Protocol; Complete Time: : [facility] [place] 04/13 22:22 Order name: O2 Sat Monitoring; Complete Time: 22:23 mg2 04/13 22:28 Order name: CT Aorta for Dissection rn EC/22 22:41 Rate is 92 beats/min. Rhythm is regular. QRS [place] is Normal. GA interval is normal. QRS rn interval is normal. QT interval is normal. No Q waves. T waves are Normal. No ST changes noted. Clinical impression: Normal ECG. Interpreted by me. Reviewed by me. Administered Medications: 22:40 Drug: NS 0.9% 500 ml Route: IV; Rate: bolus; Site: right antecubital; mg2 04/14 00:57 Follow up: Response: No adverse reaction; IV Status: Completed infusion; IV Intake: mg2 500ml 04/13 23:34 Drug: NS 0.9% 1000 ml Route: IV; Rate: 1000 ml; Site: right antecubital; ea 04/14 00:56 Follow up: Response: No adverse reaction; IV Status: Completed infusion; IV Intake: mg2 1000ml Disposition: 04/14/20 00:43 Discharged to Home. Impression: Alcohol use, unspecified with intoxication, uncomplicated, Dehydration, Chest pain, unspecified, Hypertension. - Condition is Stable. - Discharge Instructions: Alcohol Intoxication, Nonspecific Chest Pain, Dehydration, Adult, Hypertension, Pain Without a Known Cause. - Medication Reconciliation Form, Thank You Letter, Antibiotic Education, Prescription Opioid Use form. - Follow up: Private Physician; When: As needed; Reason: Recheck today's complaints, Re-evaluation by your physician. - Problem is new. - Symptoms have improved. Signatures: Dispatcher [employer] EDMS Dung Vasquez MD MD rn Antunez, Elena, RN RN ea Davies, Jonathon, RN RN jd3 [place], Michele, RN RN mg2 Corrections: (The following items were deleted from the chart) 01:11 00:43 04/14/2020 00:43 Discharged to Home. Impression: Alcohol use, unspecified with mg2 intoxication, uncomplicated; Dehydration; Chest pain, unspecified; Hypertension. Condition is Stable. Discharge Instructions: Alcohol Intoxication, Nonspecific Chest Pain, Dehydration, Adult, Hypertension, Pain Without a Known Cause. Forms are Medication Reconciliation Form, Thank You Letter, Antibiotic Education, Prescription Opioid Use. Follow up: Private Physician; When: As needed; Reason: Recheck today's complaints, Re-evaluation by your physician. Problem is new. Symptoms have improved. rn
--- NOTE | 2020-04-14 07:06 | RAD REPORT ---
EXAM DESCRIPTION: Moon Single View04/13/2020 10:44 pm CLINICAL HISTORY: Chest pain COMPARISON: 2014 FINDINGS: The lungs appear clear of acute infiltrate. The heart is mildly enlarged. Old right rib fractures IMPRESSION: No acute abnormalities displayed
--- NOTE | 2020-04-14 14:19 | RAD REPORT ---
EXAM DESCRIPTION: CT - Angio Aorta For Dissection - 04/14/2020 12:36 am CLINICAL HISTORY: Chest pain, abd pain, HTN COMPARISON: None Available. TECHNIQUE: CTA of the chest, abdomen and pelvis performed following IV administration of iodinated c ontrast. 3-D/MIP reformatted images available. FINDINGS: Chest: Thyroid: No abnormalities of the visualized thyroid. Great Vessels: Great vessels have normal anatomic configuration. Thoracic Aorta: Normal caliber thoracic aorta without evidence of dissection. Mild atherosclerotic ca lcification. Pulmonary arteries: No central filling defects. Heart: Coronary artery atherosclerosis. No cardiomegaly or significant pericardial effusion. Lymph Nodes: No enlarged mediastinal lymph nodes identified. Esophagus: No abnormalities of the esophagus identified Other: No additional findings. Lungs: No airspace opacities identified. Pleura: No pleural effusion or pneumothorax. Trachea/Airways: No abnormalities of the visualized trachea or airways. Abdomen: Liver: Hepatomegaly with hepatic steatosis. Gallbladder: No calcified gallstones. Spleen, Pancreas, and Adrenal Glands: The spleen, pancreas, and adrenal glands are unremarkable. Kidneys: The kidneys have normal size and contour without evidence of solid mass or hydronephrosis. Vasculature: Normal caliber abdominal aorta without evidence of dissection. Aortoiliac atherosclerosi s which is not flow-limiting. The common iliac, external iliac, common femoral, and proximal superfic ial femoral arteries are patent. The proximal profunda femoral artery is patent. The internal iliac a rteries are patent. The portal vein is patent. IVC is unremarkable. Retroaortic left renal vein. Stomach: The stomach and duodenum have normal course. Other: No free intraperitoneal air. No free fluid or lymphadenopathy. Pelvis: Bladder: Urinary bladder is unremarkable. Bowel: No dilated loops of large or small bowel. Scattered diverticula of the colon. Appendix: Not identified. Pelvis: Prostate is not enlarged. Bones: Degenerative endplate spondylosis and facet arthropathy of the spine. No fracture of the rig ht lateral seventh rib. IMPRESSION: 1. No evidence of aortic dissection or aneurysm. 2. No central pulmonary embolus identified. 3. Coronary artery atherosclerosis. 4. Hepatomegaly and hepatic steatosis. 5. Diverticulosis without evidence of acute diverticulitis. This exam was performed according to our departmental dose-optimization program, which includes autom ated exposure control, adjustment of the mA and/or kV according to patient size and/or use of iterati ve reconstruction technique. Electronically signed by: Billy Mendez 04/13/2020 11:45 PM CDT
--- NOTE | 2020-04-14 15:08 | RAD REPORT ---
EXAM DESCRIPTION: CT - Head Brain Wo Cont - 04/14/2020 12:36 am CLINICAL HISTORY: Headache, HTN COMPARISON: None available TECHNIQUE: Axial CT of the head obtained from the skull apex to the skull base without contrast. FINDINGS: No acute intracranial hemorrhage identified. No mass, mass effect, shift of the midline, a bnormal extra-axial fluid collection or CT evidence of acute ischemic change identified. The ventricu lar system and sulcal spaces are not larged. Scattered areas of hypodensity throughout the supraten torial white matter are nonspecific and may be related to chronic small vessel ischemic change. Opacity in the right maxillary sinus. Mastoid air cells are well aerated. No skull fracture identifie d. Visualized orbits and globes are unremarkable. Atherosclerotic calcification of the intracranial i nternal carotid arteries. IMPRESSION: 1. No acute intracranial abnormality by CT criteria. This exam was performed according to our departmental dose-optimization program, which includes autom ated exposure control, adjustment of the mA and/or kV according to patient size and/or use of iterati ve reconstruction technique. Electronically signed by: Billy Mendez 04/13/2020 11:34 PM CDT Due to temporary technical issues with the PACS/Fluency reporting system, reports are being signed by the in house radiologist without review as a courtesy to ensure prompt reporting. The interpreting r adiologist is fully responsible for the content of the report.
== END 2020-04-14 01:11 | disposition home or self-care (01) ==
LOC: ER 22:14
DX: F10.929 Alcohol use, unspecified with intoxication, unspecified (principal); E86.0 Dehydration; I10 Essential (primary) hypertension; F17.210 Nicotine dependence, cigarettes, uncomplicated
CPT/HCPCS: 96361; 93005; 85025; 80048; 36415; 80320; 83735; 85610; 82565; 80076; 84484 ×2; 83690; 83880; 70450; 71275; 74175; 71045; 96360; 99285; Q9967; J7040; J7030

== ENCOUNTER → 2023-10-16 | Emergency (ER) | payer BC, SELFPAY ==
[~2023-10-16] MED LIST: KETOROLAC 30 MG/ML INJ ONE
--- OUTSIDE RECORDS SUMMARY | 2023-10-16 18:17 | XMS REPORT | Continuity of Care Document ---
Author Name Unknown Address [address] [facility] [place] [address] [facility] Address [address] [facility] 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 Kisha Hansen Attending Clinician Unav ailable Gala Puga Attending Clinician Unavailable TOM CUETO Attending Clinician Unavailable GONZALEZ COLE Attending Clinician Unavailable Noé Smith Attending Clinician Unavail able Ash Lyons Attending Clinician Unavailable Perla Lewis LVN Attending Clinician [phone] JUN WILDE Attending Clinician Unavailable Florin Kay MD Attending Clinician [phone] Jun Wilde MD Attending Clinician [phone] Corey Ferro Attending Clinician [phone]- [phone] TOM CUETO Admitting Clinician Unavailable JUN WILDE Admitting Clinician Unavailable Jun Wilde MD Admitting Clinician Payers Payer Name Policy Type Policy Number Effective Date Expirati on Date Source [facility] [id number] [[id number]] MEENA [id number] 2022 00:00:00 2023 00:00:00 [employer] HMO [id number] 2016 00:00:00 [employer] [place] [id number] 2017 00:00:00 Problems Condition Name Condition Details Condition Category Status Onset Date Resolution Date Last Treatment Date Treating Clinician Comments Source Abdominal pain Abdominal pain Disease Active 10-27 00:00: 00 [facility] Uncontroll ed hypertensi on Uncontroll ed hypertensi on Disease Active 10-26 00:00: 00 [facility] Obesity (BMI 30-39.9) Obesity (BMI 30-39.9) Disease Active 10-26 00:00: 00 [facility] No known active problems No known active problems Disease [facility] Allergies, Adverse Reactions, Alerts Allergy Name Allergy Type Status Severity Reaction(s) Onset Date Inactive Date Treating Clinician Comments Source No Known Drug Allergie s DA Active U 2- 00:00: 00 [facility] No Known Drug Allergie s DA Active U 04-29 00:00: 00 [facility] NO KNOWN ALLERGIE S Drug Class Active [facility] Social History Social Habit Start Date Stop Date Quantity Comments Source History of tobacco use Cigarette Smoker [facility] History SDOH Alcohol Frequency [facility] History SDOH Alcohol Std Drinks [facility] History SDOH Alcohol Binge [facility] Exposure to SARS-CoV-2 (event) Not sure [facility] Alcohol intake 2020-09-18 00:00:00 2020-09-18 00:00:00 Current drinker of alcohol (finding) [facility] Cigarettes smoked current (pack per day) - Reported 2017-09-01 00:00:00 2017-09-01 00:00:00 [facility] Tobacco use and exposure 2017-09-01 00:00:00 2017-09-01 00:00:00 Never used [facility] Alcohol Comment 2017-09-01 00:00:00 2017-09-01 00:00:00 Social Drinker [facility] Sex Assigned At 1965 00:00:00 1965 00:00:00 [facility] Smoking Status Start Date Stop Date Source Current every day smoker 2017-09-01 00:00:00 [facility] Medications Ordered Medication Name Filled Medication Name Start Date Stop Date Current Medication? Ordering Clinician Indication Dosage Frequency Signature (SIG) Comments Components Source foLIC acid 1 mg tablet 10-29 00:00: 00 11-29 04:59 :00 No [id number] 1mg Take 1 tablet by mouth daily for 30 days. [facility] thiamine 100 mg tablet 0 10-29 00:00: 00 11-29 04:59 :00 No [id number] 100mg Take 1 tablet by mouth daily for 30 days. [facility] foLIC acid 1 mg tablet 10-29 00:00: 00 11-29 04:59 :00 No [id number] 1mg Take 1 tablet by mouth daily for 30 days. [facility] thiamine 100 mg tablet 10-29 00:00: 00 11-29 04:59 :00 No [id number] 100mg Take 1 tablet by mouth daily for 30 days. [facility] foLIC acid 1 mg tablet 0 10-29 00:00: 00 11-29 04:59 :00 No [id number] 1mg Take 1 tablet by mouth daily for 30 days. [facility] thiamine 100 mg tablet 10-29 00:00: 00 11-29 04:59 :00 No [id number] 100mg Take 1 tablet by mouth daily for 30 days. [facility] oxazepam (SERAX) capsule 15 mg 2021-10-29 00:00: 00 10-29 23:59 :00 No 15mg 15 mg, Oral, Q12H TAPER, 2 doses, First dose on Wed10/28/21 at 1800, Last dose on Wed10/29/21 at 0600, Routine [facility] metFORMIN (GLUCOPHAGE ) tablet 500 mg 10-28 23:00: 00 Yes 500mg 500 mg, Oral, BID MEALS, First dose on Wed10/28/21 at 1700, Until Discontinu ed, Routine [facility] metoprolol succinate XL (TOPROL XL) tablet 12.5 mg 10-28 20:45: 00 Yes 12.5mg 12.5 mg, Oral, DAILY, First dose on Wed10/28/21 at 1445, Until Discontinu ed, Routine [facility] LORazepam (ATIVAN) injection 1 mg 10-28 19:15: 00 10-28 19:17 :00 No 1mg 1 mg, Slow IV Push, ONCE, 1 dose, On Wed10/28/21 at 1315, Routine [facility] losartan (COZAAR) tablet 100 mg 10-28 18:00: 00 Yes 100mg 100 mg, Oral, DAILY, First dose on Wed10/28/21 at 1200, Until Discontinu ed, Routine [facility] pantoprazol e (PROTONIX) EC tablet 40 mg 10-28 14:00: 00 Yes 40mg 40 mg, Oral, BID, First dose on Wed10/28/21 at 0800, Until Discontinu ed, Routine [facility] losartan 100 mg tablet 10-28 12:08: 03 10-28 00:00 :00 No 100mg Take 100 mg by mouth daily. [facility] losartan 100 mg tablet 10-28 00:00: 00 11-28 04:59 :00 No [id number] 100mg Take 1 tablet by mouth daily for 30 days. [facility] metFORMIN 500 mg tablet 10-28 00:00: 00 11-28 04:59 :00 No [id number] 500mg Take 1 tablet by mouth 2 (two) times daily with meals for 30 days. [facility] pantoprazol e 40 mg EC tablet 2022-0 3-08 00:00: 00 11-28 04:59 :00 No [id number] 40mg Take 1 tablet by mouth 2 (two) times daily for 30 days. [facility] losartan 100 mg tablet 2021-0 3-08 00:00: 00 11-28 04:59 :00 No [id number] 100mg Take 1 tablet by mouth daily for 30 days. [facility] metFORMIN 500 mg tablet 2021-0 3-08 00:00: 00 11-28 04:59 :00 No [id number] 500mg Take 1 tablet by mouth 2 (two) times daily with meals for 30 days. [facility] pantoprazol e 40 mg EC tablet 2021-0 08 00:00: 00 11-28 04:59 :00 No [id number] 40mg Take 1 tablet by mouth 2 (two) times daily for 30 days. [facility] losartan 100 mg tablet 2021-0 -08 00:00: 00 11-28 04:59 :00 No [id number] 100mg Take 1 tablet by mouth daily for 30 days. [facility] metFORMIN 500 mg tablet 2021-0 308 00:00: 00 11-28 04:59 :00 No [id number] 500mg Take 1 tablet by mouth 2 (two) times daily with meals for 30 days. [facility] pantoprazol e 40 mg EC tablet 0 308 00:00: 00 11-28 04:59 :00 No [id number] 40mg Take 1 tablet by mouth 2 (two) times daily for 30 days. [facility] chlordiazeP OXIDE 25 mg capsule 2021-0 3-08 00:00: 00 11-01 05:59 :00 No [id number] Take 1 capsule by mouth 3 (three) times daily for 1 day, THEN 1 capsule 2 (two) times daily for 2 days. [facility] chlordiazeP OXIDE 25 mg capsule 2021-0 3-08 00:00: 00 11-01 05:59 :00 No [id number] Take 1 capsule by mouth 3 (three) times daily for 1 day, THEN 1 capsule 2 (two) times daily for 1 day, THEN 1 capsule daily for 1 day. [facility] chlordiazeP OXIDE 25 mg capsule 10-28 00:00: 00 11-01 05:59 :00 No [id number] Take 1 capsule by mouth 3 (three) times daily for 1 day, THEN 1 capsule 2 (two) times daily for 2 days. [facility] SITagliptin (JANUVIA) tablet 100 mg 10-27 17:15: 00 Yes 100mg 100 mg, Oral, DAILY, First dose on Wed10/27/21 at 1115, Until Discontinu ed, Routine [facility] sennosides (SENOKOT) tablet 8.6 mg 10-27 14:00: 00 Yes 8.6mg 8.6 mg, Oral, BID, First dose on Wed10/27/21 at 0800, Until Discontinu ed, Routine [facility] docusate (COLACE) capsule 100 mg 10-27 14:00: 00 Yes 100mg 100 mg, Oral, BID, First dose on Wed10/27/21 at 0800, Until Discontinu ed, Routine [facility] alum-mag hydroxide-s imeth (MAALOX PLUS / MAG-AL PLUS) 200-200-20 mg/5 mL suspension 30 mL 10-27 14:00: 00 10-29 13:59 :00 No 30mL 30 mL, Oral, TID, 6 doses, First dose on Wed10/27/21 at 0800, Last dose on Wed10/28/21 at 2000, Routine [facility] morpHINE injection 2 mg 10-27 11:23: 09 Yes 2mg 2 mg, Slow IV Push, Q4HPRN, Starting on Wed10/27/21 at 0523, Until Discontinu ed, Routine, Pain (scale 7-10) [facility] morpHINE injection 2 mg 10-27 09:46: 00 10-27 09:55 :00 No 2mg 2 mg, Slow IV Push, ONCE, 1 dose, On Wed10/27/21 at 0400, Routine [facility] pantoprazol e (PROTONIX) injection 40 mg 10-27 02:00: 00 10-28 13:59 :45 No 40mg 40 mg, Slow IV Push, Q12H, First dose on Wed10/26/21 at 2000, Until Discontinu ed [facility] nicotine (NICODERM) 21 mg/24 hr patch 1 Patch 10-27 00:30: 00 Yes 1{patch } 1 Patch, Topical, Administer over 24 Hours, Q24H, First dose on Wed10/26/21 at 1830, Until Discontinu ed, Routine [facility] traMADoL (ULTRAM) tablet 50 mg 10-26 23:21: 04 Yes 50mg 50 mg, Oral, Q4HPRN, Starting on Wed10/26/21 at 1721, Until Discontinu ed, Routine, Pain (scale 4-6) [facility] enoxaparin (LOVENOX) injection 30 mg 10-26 23:00: 00 10-27 00:37 :16 No 30mg 30 mg, Subcutaneo us, DAILY, First dose on Wed10/26/21 at 1700, Until Discontinu ed, Routine [facility] NaCl 0.45% (1/2NS) IV infusion 1,000 mL 10-26 18:15: 00 10-27 17:10 :07 No 1000mL at 125 mL/hr, 1,000 mL, IV Infusion, CONTINUOUS , Starting on Wed10/26/21 at 1215, Until Wed10/27/21 at 1110, [facility]ine [facility] (PROTONIX[facility] 80 mg in NaCl 0.9% (NS) 20 mL syringe 10-26 18:15: 00 10-26 18:17 :00 No 80mg 80 mg, IV Push, ONCE, 1 dose, On Wed10/26/21 at 1215, Administer over 2 Minutes, 20 mL [facility] LORazepam (ATIVAN) injection 1 mg 10-26 18:15: 00 10-26 17:12 :00 No 1mg 1 mg, Slow IV Push, ONCE, 1 dose, On 10/26/21 at 1215, STAT [facility] Sliding Scale Insulin - Lispro (HumaLOG) + Fsbg Testing 10-26 18:00: 00 Yes Subcutaneo us, Q4H, First dose on Wed10/26/21 at 1200, Until Discontinu ed, Routine [facility] cloNIDine (CATAPRES) tablet 0.2 mg 10-26 17:45: 00 10-26 16:43 :00 No .2mg 0.2 mg, Oral, ONCE, 1 dose, On 10/26/21 at 1145, STAT [facility] foLIC acid (FOLATE) tablet 1 mg 10-26 17:30: 00 Yes 1mg 1 mg, Oral, DAILY, First dose on 10/26/21 at 1130, Until Discontinu ed, Routine [facility] thiamine (VITAMIN B1) tablet 100 mg 10-26 17:30: 00 Yes 100mg 100 mg, Oral, DAILY, First dose on 10/26/21 at 1130, Until Discontinu ed, Routine [facility] oxazepam (SERAX) capsule 15 mg 10-26 17:18: 01 Yes 15mg 15 mg, Oral, Q4HPRN, Starting on 10/26/21 at 1118, Until Discontinu ed, Routine, Only while awake for DBP equal to or greater than 100, HR equal to or greater than 100. [facility] glucagon (GLUCAGEN DIAGNOSTIC KIT) injection 1 mg 10-26 17:16: 38 Yes 1mg 1 mg, Intramuscu lar, PRN, Starting on 10/26/21 at 1116, Until Discontinu ed, KALYANI, Blood Glucose < or = 70 mg/dL and patient is unable to swallow or has mental changes. [facility] dextrose 50 % in water (D50W) injection 25 mL 10-26 17:16: 38 Yes 25mL 25 mL, Slow IV Push, PRN, Starting on 10/26/21 at 1116, Until Discontinu ed, KALYANI, Blood Glucose < or = 70 mg/dL and patient is unable to swallow or has mental status changes. [facility] NaCl 0.9% (NS) bolus infusion 1,000 mL 10-26 17:00: 00 10-26 17:25 :00 No 1000mL at 999 mL/hr, 1,000 mL, IV Infusion, ONCE, 1 dose, On Wed10/26/21 at 1100, STAT [facility] ondansetron (ZOFRAN (PF)) injection 4 mg 10-26 16:45: 00 10-26 15:42 :00 No 4mg 4 mg, Slow IV Push, ONCE, 1 dose, On Wed10/26/21 at 1045, KALYANI [facility] morpHINE injection 4 mg 10-26 16:45: 00 10-26 15:42 :00 No 4mg 4 mg, Slow IV Push, ONCE, 1 dose, On Wed10/26/21 at 1045, STAT [facility] iopamidol (ISOVUE 370-500 mL) injection 100 mL 10-26 16:16: 00 10-26 16:17 :00 No [id number] 100mL 100 mL, Intravenou s, ONCE, 1 dose, On Wed10/26/21 at 1030, Routine [facility] amoxicillin -clavulanat e (AUGMENTIN) 875-125 mg per tablet 1 tablet 09-19 04:00: 00 09-19 03:19 :00 No 1{tbl} 1 tablet, Oral, ONCE NOW, 1 dose, Wed09/18/20 at 2200, Routine
Reason for Anti-Infec tive: Documented Infection< br>Documen sammy Infection Site: Abdominal< br>Duratio n of Therapy: Other (see Comments) [facility] LORazepam (ATIVAN) injection 1 mg 09-19 03:45: 00 09-19 02:46 :00 No 1mg 1 mg, Slow IV Push, ONCE, 1 dose, Wed09/18/20 at 2145, STAT [facility] ondansetron (ZOFRAN (PF)) injection 4 mg 09-19 03:45: 00 09-19 02:46 :00 No 4mg 4 mg, Slow IV Push, ONCE, 1 dose, Wed09/18/20 at 2145, KALYANI [facility] ketorolac (TORADOL) injection 15 mg 09-19 01:30: 00 09-19 00:20 :00 No 15mg 15 mg, Slow IV Push, ONCE, 1 dose, Wed09/18/20 at 1930, KALYANI
Fa culty member approving Restricted medication : COREY DEUTSCH [facility] NaCl 0.9% (NS) bolus infusion 1,000 mL 09-18 22:45: 00 09-19 01:00 :00 No 1000mL at 999 mL/hr, 1,000 mL, IV Infusion, ONCE, 1 dose, Wed09/18/20 at 1645, KALYANI [facility] chlordiazeP OXIDE 25 mg capsule 09-18 00:00: 00 Yes [id number] 25mg Take 1 capsule by mouth 3 (three) times daily. [facility] ondansetron (ZOFRAN ODT) 4 mg disintegrat ing tablet 09-18 00:00: 00 Yes [id number] 4mg Take 1 tablet by mouth every 8 (eight) hours as needed for Nausea and Vomiting (N/V). [facility] ondansetron (ZOFRAN ODT) 4 mg disintegrat ing tablet 09-18 00:00: 00 Yes [id number] 4mg Take 1 tablet by mouth every 8 (eight) hours as needed for Nausea and Vomiting (N/V). [facility] ondansetron (ZOFRAN ODT) 4 mg disintegrat ing tablet 09-18 00:00: 00 Yes [id number] 4mg Take 1 tablet by mouth every 8 (eight) hours as needed for Nausea and Vomiting (N/V). [facility] ondansetron (ZOFRAN ODT) 4 mg disintegrat ing tablet 09-18 00:00: 00 Yes [id number] 4mg Take 1 tablet by mouth every 8 (eight) hours as needed for Nausea and Vomiting (N/V). [facility] chlordiazeP OXIDE 25 mg capsule 09-18 00:00: 00 10-28 00:00 :00 No [id number] 25mg Take 1 capsule by mouth 3 (three) times daily. [facility] amoxicillin -clavulanat e 875-125 mg per tablet 09-18 00:00: 00 09-29 05:59 :00 No [id number] 1{tbl} Take 1 tablet by mouth every 12 (twelve) hours for 10 days. [facility] losartan 100 mg tablet 09-02 17:18: 00 Yes 100mg Take 100 mg by mouth daily. [facility] Vital Signs Vital Name Observation Time Observation Value Comments S ource Systolic blood pressure 2021-10-28 22:00:00 156 mm[Hg] [facility] Diastolic blood pressure 2021-10-28 22:00:00 109 mm[Hg] [facility] Heart rate 2021-10-28 22:00:00 110 /min [facility] Body temperature 2021-10-28 17:37:00 36.28 Kiara [facility] Respiratory rate 2021-10-28 17:37:00 13 /min [facility] Oxygen saturation in Arterial blood by Pulse oximetry 2021-10-28 17:37:00 96 /min [facility] Body height 2021-10-27 17:12:00 170.2 cm [facility] Body weight 2021-10-27 17:12:00 96.616 kg [facility] BMI 2021-10-27 17:12:00 33.36 kg/m2 [facility] Systolic blood pressure 2020-09-19 03:00:00 118 mm[Hg] [facility] Diastolic blood pressure 2020-09-19 03:00:00 87 mm[Hg] [facility] Heart rate 2020-09-19 03:00:00 87 /min [facility] Respiratory rate 2020-09-19 03:00:00 16 /min [facility] Oxygen saturation in Arterial blood by Pulse oximetry 2020-09-19 03:00:00 96 /min [facility] Body temperature 2020-09-18 21:45:00 36.61 Kiara [facility] Body height 2020-09-18 21:45:00 170.2 cm [facility] Body weight 2020-09-18 21:45:00 104.327 kg [facility] BMI 2020-09-18 21:45:00 36.02 kg/m2 [facility] Procedures Procedure Date / Time Performed Performing Clinician Source POCT GLUCOSE (AUTOMATED) 2021-10-28 17:33:00 Jun Wilde [facility] POCT GLUCOSE (AUTOMATED) 2021-10-28 14:27:00 Jun Wilde [facility] BASIC METABOLIC PANEL (NA, K, CL, CO2, GLUCOSE, BUN, CREATININE, CA) 2021-10-28 10:25:00 Jun Wilde [facility] CBC WITH DIFF 2021-10-28 10:25:00 Jun Wilde [facility] POCT GLUCOSE (AUTOMATED) 2021-10-28 10:24:00 Jun Wilde [facility] POCT GLUCOSE (AUTOMATED) 2021-10-28 06:24:00 Jun Wilde [facility] POCT GLUCOSE (AUTOMATED) 2021-10-28 02:42:00 Jun Wilde [facility] POCT GLUCOSE (AUTOMATED) 2021-10-27 22:01:00 Jun Wilde [facility] US GALL BLADDER 2021-10-27 17:33:54 [facility] 2021-10-27 17:16:00 Jun Wilde [facility] TRANSTHORACIC ECHO (TTE) COMPLETE 2021-10-27 17:12:11 Jun Wilde [facility] POCT GLUCOSE (AUTOMATED) 2021-10-27 14:08:00 Jun Wilde [facility] XR ABDOMEN 1 VW 2021-10-27 12:17:52 Lory Cai [facility] LACTIC ACID WHOLE BLOOD 2021-10-27 11:54:00 Enriqueta Cai [facility] PHOSPHORUS 2021-10-27 09:56:00 [facility] LIPASE 2021-10-27 09:56:00 L[facility] MAGNESIUM 2021-10-27 09:56:00 [facility] COMP. METABOLIC PANEL ([id number]) 2021-10-27 09:56[facility] 2021-10-27 09:56:00 Jun Wilde [facility] POCT GLUCOSE (AUTOMATED) 2021-10-27 06:08:00 [facility] ([facility]ATED) 2021-10-27 02:37:00 [facility] HEMO[facility]IN 2021-10-27 01:21:00 Jun [facility] POCT GLUCOSE (AUTOMATED) 2021-10-26 22:08:00 Migdalia [facility] POCT GLUCOSE (AUTOMATED) 2021-10-26 17:55:[address] Mig[address] [facility] CT ABDOMEN PELVIS W CONTRAST 2021-10-26 16:21:33 Florin Kay [facility] ABORH CONFIRMATION (LAB ONLY) 2021-10-26 15:30:00 lForin Kay [facility] URINALYSIS 2021-10-26 15:03:00 [facility] COVID-19 (ID NOW RAPID TESTING) 2021-10-26 15:03:00 [facility] INTERPRETATION 2021-10-26 15:03:00 Florin Kay [facility] URINE DRUG (IMMUNOASSAY) - COMPREHENSIVE DRUG SCREEN W/O REFLEX 2021-10-26 15:03:00 Florin Kay [facility] LACTIC ACID WHOLE BLOOD 2021-10-26 15:02:00 Do duc Kay [facility] HB ABO GROUPING 2021-10-26 14:58:00 Florin Kay [facility] AMMONIA, PLASMA 2021-10-26 14:56:00 Florin Kay [facility] HB ECG ROUTINE & RHYTHM STRIP 2021-10-26 14:54:05 Florin Kay [facility] LIPASE 2021-10-26 14:54:00 Florin Kay [facility] TROPONIN I 2021-10-26 14:54:00 [facility] COMP. METABOLIC PANEL ([id number]) 2021-10-26 14:54:00 Florin Kay [facility] ETHANOL 2021-10-26 14:54:00 [facility] CBC WITH DIFF 2021-10-26 14:54:00 Florin Kay [facility] GLYCOSYLATED HEMOGLOBIN (A1C) 2021-10-26 14:54:00 Florin Kay [facility] PROTHROMBIN TIME / INR 2021-10-26 14:54:00 Gume Kay [facility] ACTIVATED PARTIAL THRMPLAS LOUIE 2021-10-26 14:54:00 Florin Kay [facility] N-TERMINAL PRO-BNP 2021-10-26 14:54:00 Florin Kay [facility] NOTICE OF PRIVACY PRACTICES 2021-10-26 14:44:01 Doctor Unassigned, [place] [facility] CONSENT/REFUSAL FOR DIAGNOSIS AND TREATMENT 2021-10-26 14:42:51 Doctor Unassigned, [place] [facility] URINALYSIS 2020-09-19 02:00:00 [facility]y [facility] CT ABDOMEN PELVIS WO CONTRAST 2020-09-19 00:31:45 Corey Deutsch [facility] LIPASE 2020-09-18 23:11:00 Corey Deutsch [facility] COMP. METABOLIC PANEL ([id number]) 2020-09-18 23:11:00 Corey Deutsch [facility] CBC WITH DIFF 2020-09-18 23:11:00 Corey Deutsch [facility] ASSIGNMENT OF BENEFITS 2020-09-18 22:21:15 Nicola r Unassigned, [place] [facility] CONSENT/REFUSAL FOR DIAGNOSIS AND TREATMENT 2020-09-18 21:36:36 Doctor Unassigned, [place] [facility] Encounters Start Date/Time End Date/Time Encounter Type Admission Type Attending [facility] Care Department Encounter ID Source 2022-11-01 12:21:00 Inpatient [facility] [id number] [facility] 2022-03-20 12:32:11 Outpatient Yeboah Kisha [facility] [id number] 1.0- [facility] 2022-03-19 13:57:59 Outpatient Edilia Kisha [facility] [id number] [facility] 2022-03-02 08:48:16 Outpatient Edilia Kisha [facility] [id number] [facility] 2023-08-20 00:00:00 2023-08-20 00:00:00 Outpatient Gala Puga [facility] [id number] [facility] 2023-06-29 00:00:00 2023-06-29 00:00:00 Outpatient Gala Puga [facility] [id number] [facility] 2023-06-28 20:51:03 2023-06-28 20:51:03 Outpatient [id number] [facility] 2023-06-28 00:00:00 2023-06-28 00:00:00 Outpatient Gala Puga [facility] [id number] [facility] 2023-06-24 00:00:00 2023-06-24 00:00:00 Outpatient EddGala [facility] [id number] [facility] 2023-05-31 00:00:00 2023-05-31 00:00:00 Outpatient Gala Puga [facility] [id number] 1.0- [facility] 2023-05-24 00:00:00 2023-05-24 00:00:00 Outpatient Gala Puga [facility] [id number] [facility] 2023-04-30 08:29:00 2023-05-01 18:30:00 Inpatient UR TOM CUETO [facility] [id number] [facility]30 08:29:00 2023-05-01 18:30:00 inpatient encounter [id number] 2023-04-29 19:07:00 2023-04-30 07:40:00 Emergency [facility] [id number] [facility] 2023-04-29 19:07:00 2023-04-30 07:40:00 emergency [id number] 2023-04-12 00:00:00 2023-04-12 00:00:00 Outpatient Gala Puga [facility] [id number] [facility] 2022-12-19 00:00:00 2022-12-19 00:00:00 Outpatient Gala Puga [facility] [id number] [facility] 2022-10-15 00:00:00 2022-10-15 00:00:00 Outpatient Gala Puga [facility] [id number] [facility] 2022-10-13 20:25:00 2022-10-13 22:45:00 Emergency Emergency PensomNoé [facility] [id number] [facility] 2022-10-13 20:25:00 2022-10-13 22:45:00 Emergency Emergency [facility] M[facility] [id number] [facility] 2022-08-29 00:00:00 2022-08-29 00:00:00 Outpatient Gala Puga [facility] [id number] 1.0- [facility] 2022-08-18 00:00:00 2022-08-18 00:00:00 Outpatient Gala Puga [facility] [id number] [facility] 2022-06-13 00:00:00 2022-06-13 00:00:00 Outpatient Edd Gala [facility] [id number] .0- [facility] 2022-04-29 05:40:00 2022-04-29 13:01:00 Emergency Emergency Eloy Ash [facility] M[facility] [id number] [facility] 2022-04-29 05:40:00 2022-04-29 05:40:00 Emergency Emergency Eloy, Ash [facility] M[facility] [id number] [facility] 2021-11-04 00:00:00 2021-11-04 00:00:00 Transition of Care Perla LewisLeena GUTIERREZTRIP .[id number] [id number] [id number] [facility] 2021-10-29 00:00:00 2021-10-29 00:00:00 Transition of Care Perla LewisLeena GUTIERREZTRIP [id number] [id number] [id number] [facility] 2021-10-26 08:44:00 2021-10-28 16:21:00 Inpatient X JUN WILDE [facility] NELSY [id number] [facility] 2021-10-26 08:44:00 2021-10-28 16:21:00 Hospital Encounter Florin Kay Yaman [facility] [id number] 4.2.7.2.686 [id number] [facility] 2020-09-18 15:49:00 2020-09-18 22:47:00 Emergency Corey Deutsch [facility] [id number] [id number] [id number] [facility] 2020-09-18 15:36:00 2020-09-18 15:36:00 Emergency X [facility] ERT [id number] [facility] Results Test Description Test Time Test Comments Results Result Co mments Source SARS-CoV-2 Antigen (Rapid)2022-04-29 07:27:00* Test Item Value Reference Range Interpretation Comme nts SARS-CoV-2 Antigen (Rapid) (test code = [id number]) Negative Negative The clinical per formance of rapid antigen diagnostic testslargely depends on the circumstances in which they are used.Rapid antigen tests perform best when the person is testedin the early stages of infection with SARS-CoV-2 when viralload is generally highest. They also may be informative indiagnostic testing situations in which the person has aknown exposure to a confirmed case of COVID-19. Rapidantigen tests can be used for screening testing in high-riskcongregate settings in which repeat testing could quicklyidentify persons with a SARS-CoV-2 infection to informinfection prevention and control measures, thus preventingtransmission.Leo van: CDC.gov, Interim Guidance for Rapid Antigen Testingfor SARS-CoV-2- Updated 05.12;https://www.cdc.gov/ coronavirus/2019-ncov/lab/ resources/pcmaqzv-evyzu-wl idelines.html Influenza Virus A B [id number] 07:27:00* Test Item Value Reference Range Interpretation Comme nts Influenza Virus A Antigen (t est code = INFAAB) Negative Negative Influenza Virus B Antigen (t est code = INFBAB) Negative Negative UA, Urinalysis Rflx Cult/[id number] 06:50:00* Test Item Value Reference Range Interpretation Comme nts Color,Urine (test code = UCOL) Yellow Yellow Clarity,Urine (test code = UCLAR) Clear Clear PH,Urine (test code = UPH.XX) 6.0 5.0-8.0 Specific Organ,Urine (test code = USG) 1.017 SGU 1.005-1.030 N Blood,Urine (test code = UBLD) Negative Negative Protein,Urine (test code = UPRO) Negative Negative Glucose,Urine (UA) (test cod e = UGLU) 1+ Negative A Ketones,Urine (test code = UKET) Negative Negative Nitrate,Urine (test code = UNIT) Negative Negative Bilirubin,Urine (test code = UBIL) Negative Negative Urobilinogen,Urine (test cod e = UURO) 1.0 EU/dL Negative Leukocyte Esterase,Urine (te st code = ULEU) Negative Negative [id number] 06:30:00* Test Item Value Reference Range Interpretation Comme nts Lipase (test code = LIP) 162 IU/L 73-393 N Troponin I High [id number] 06:30:00* Test Item Value Reference Range Interpretation Comme nts Troponin I High Sensitivity (test code = TROPHS) 22.8 ng/L 0-58.9 N Complete Blood Count Auto [id number] 06:30:00* Test Item Value Reference Range Interpretation Comme nts White Blood Count (test code = WBCT) 9.3 x10 3/uL 4.8-10.8 N Red Blood Count (test code = RBC) 4.78 x10 6/uL 4.60-6.20 N Hemoglobin (test code = HGBT) 14.3 g/dL 14.0-18.0 N Hematocrit (test code = HCTT) 43.4 % 38.0-52.0 N Mean Corpuscular Volume (jorge t code = MCV) 90.8 fL 80.0-95.0 N Mean Corpuscular Hemoglobin (test code = MCH) 29.9 pg 26.0-32.0 N Mean Corpuscular HGB Conc (t est code = MCHC) 32.9 g/dL 31.0-36.0 N Red Cell Distribution Width (test code = RDW) 12.9 % 11.5-14.5 N Platelet Count (test code = PLTT) 193 x10 3/uL 140-440 N Mean Platelet Volume (test c ode = MPV) 11.0 fL 7.5-11.2 N Immature Granulocytes % (Aut o) (test code = IMMGRAN%) 0.2 % Neutrophils % (Auto) (test c ode = NE%) 47.9 % Lymphocytes % (Auto) (test c ode = LY%) 36.3 % Monocytes % (Auto) (test cod e = MO%) 12.0 % Eosinophils % (Auto) (test c ode = EO%) 2.4 % Basophils % (Auto) (test cod e = BA%) 1.2 % Immature Granulocytes # (Aut o) (test code = IMMGRAN#) 0.02 x10 3/uL Neutrophils # (Auto) (test c ode = NE#) 4.4 x10 3/uL 2.7-7.3 N Lymphocytes # (Auto) (test c ode = LY#) 3.4 x10 3/uL 0.8-3.5 N Monocytes # (Auto) (test cod e = MO#) 1.1 x10 3/uL 0.3-0.9 H Eosinophils # (Auto) (test c ode = EO#) 0.2 x10 3/uL 0.0-0.3 N Basophils # (Auto) (test cod e = BA#) 0.1 x10 3/uL 0.0-0.1 N nRBC Abs (test code = NRBCA) 0 10>3/mcL nRBC Pct (test code = NRBCP) 0 % Comprehensive Metabolic [id number] 06:30:00* Test Item Value Reference Range Interpretation Comme nts SODIUM (test code = NA) 135 mmol/L 136-145 L Potassium,K (test code = K) 4.4 mmol/L 3.5-5.1 N Chloride (test code = CL) 104 mmol/L 98-107 N Carbon Dioxide (test code = CO2) 24 mmol/L 21-32 N Anion Gap (test code = GAP) 7 mmol/L 7-16 N Blood Urea Nitrogen (test co de = BUN) 11 mg/dL 7-18 N Creatinine (test code = CREATT) 0.8 mg/dL 0.7-1.3 N Creatinine Clr Calc Pharmacy (test code = CRCLPHA) 122.36 mL/min Estimated GFR ( Ameri ca (test code = EGFRAA) > 60 mL/min/1.73m2 Estimated GFR (Non Afr Ameri ca (test code = EGFRNAA) > 60 mL/min/1.73m2 BUN/Creatinine Ratio (test c ode = BCRATIO) 14 Glucose (test code = GLU) 139 mg/dL 74-106 H Calcium (test code = CA) 9.1 mg/dL 8.5-10.1 N Bilirubin,Total (test code = BILIT) 0.5 mg/dL 0.2-1.0 N Aspartate Amino Transferase (test code = AST) 43 IU/L 10-34 H Alanine Aminotransferase (te st code = ALT) 49 IU/L 12-78 N Total Protein (test code = TP) 7.3 g/dL 6.4-8.2 N Albumin Level (test code = ALB) 3.4 g/dL 3.4-5.0 N Globulin (test code = GLOB) 4 Albumin/Globulin Ratio (test code = AGRATIO) 0.9 ratio 1.2-3.0 L Alkaline Phosphatase (test c ode = ALP) 102 IU/L 45-122 N FZ-Fvm-P-Type Natriuretic [id number] 06:30:00* Test Item Value Reference Range Interpretation Comme nts UN-Oxm-T-Type Natriuretic Pept (test code = NTPROBNP) 63 pg/mL 0-125 N < 300 pg/ml - h eart failure unlikelyAge less than 50 years, > 450 pg/ml - heart failure lilkelyAge 50 - 75 years, > 900 pg/ml - heart failure likelyAge greater than 75 years, > 1800 pg/ml - heart failurelikely LIPID [id number] 06:42:29* Test Item Value Reference Range Interpretation Comme nts CHOLESTEROL (test code = 2210) 266 MG/DL <200 H TRIGLYCERIDES (test code = 2232) 176 MG/DL <150 H HDL CHOLESTEROL (test code = 2219) 51 MG/DL >39 CALC LDL CHOL (test code = 2236) 182 MG/DL <100 H NOTE: CALCULATED LDL IS BASED ON JONI-MOSLEY METHOD WHICHINCLUDES ADJUSTABLE TRIGLYCERIDE:VLDL CHOLESTEROL RATIO.THIS FACTOR VARIES BY MEASURED TRIGLYCERIDE AND NON-HDLCHOLESTEROL CONCENTRATIONS WITH INCREASED CALCULATED LDL SEENIN HIGHER TRIGLYCERIDE OR LOWER NON-HDL SPECIMENS. FOR MOREINFORMATION, SEE CLIENT ANNOUNCEMENT AT [email or web address] RISK RATIO LDL/HDL (test code = 2237) 3.57 RATIO <3.55 H COMPREHENSIVE METABOLIC PANEL WITH CORRECTED [id number] 06:42:29* Test Item Value Reference Range Interpretation Comme nts GLUCOSE (test code = 2216) 141 MG/DL 70-99 H BUN (test code = 2207) 16 MG/DL 6-20 CREATININE (test code = 221) 0.97 MG/DL 0.80-1.40 eGFR (2020 CKD-EPI) (test code = 59163) 93 ML/MIN/1.73 >60 CALC BUN/CREAT (test code = 2234) 16 RATIO 6-28 SODIUM (test code = 223) 139 MEQ/L 133-146 POTASSIUM (test code = 2228) 4.4 MEQ/L 3.5-5.4 CHLORIDE (test code = 2215) 101 MEQ/L 95-107 CARBON DIOXIDE (test code = 2206) 24 MEQ/L 19-31 CALCIUM (test code = 2208) 9.7 MG/DL 8.5-10.5 CALCIUM, ALBUMIN ADJUSTED (test code = 2256) 9.4 MG/DL 8.5-10.5 PROTEIN, TOTAL (test code = 222) 7.8 G/DL 6.1-8.3 ALBUMIN (test code = 2201) 4.4 G/DL 3.5-5.2 CALC GLOBULIN (test code = 2240) 3.4 G/DL 1.9-3.7 CALC A/G RATIO (test code = 223) 1.3 RATIO 1.0-2.6 BILIRUBIN, TOTAL (test code = 220) 0.5 MG/DL See_Comment [Automated me ssage] The system which generated this result transmitted reference range: <=1.2. The reference range was not used to interpret this result as normal/abnormal. ALKALINE PHOSPHATASE (test code = 2204) 111 U/L 40-121 AST (test code = 2218) 42 U/L 9-50 ALT (test code = 2219) 34 U/L 5-50 URINALYSIS WITH [id number] 03:40:35* Test Item Value Reference Range Interpretation Comme nts COLOR (test code = 1501) DARK YELLOW YELLOW-STRAW A APPEARANCE (test code = 1502) CLEAR CLEAR SPECIFIC GRAVITY (test code = 1503) 1.025 1.005-1.035 LEUKOCYTE ESTERASE (test code = 1504) NEGATIVE NEGATIVE NITRITE (test code = 1505) NEGATIVE NEGATIVE pH (test code = 1506) 6.0 5.0-9.0 PROTEIN (test code = 1507) NEGATIVE NEGATIVE GLUCOSE (test code = 1508) 2+ NEGATIVE A KETONES (test code = 1509) TRACE NEGATIVE A UROBILINOGEN (test code = 1510) 1.0 MG/DL See_Comment [Automated UNXa ge] The system which generated this result transmitted reference range: <=2.0. The reference range was not used to interpret this result as normal/abnormal. BILIRUBIN (test code = 1511) NEGATIVE NEGATIVE OCCULT BLOOD (test code = 1512) NEGATIVE NEGATIVE WHITE BLOOD CELLS (test code = 1513) 0-5 /HPF 0-5 RED BLOOD CELLS (test code = 1514) 0-2 /HPF 0-5 EPITHELIAL CELLS (test code = 04286) 0-5 /HPF 0-5 BACTERIA (test code = 1515) NONE SEEN NONE SEEN CASTS, HYALINE (test code = 1517) NONE SEEN NONE-TRACE UNLESS OTHERWISE INDICATED, ALL TESTING PERFORMED [facility] [address] [place] [id number] [employer]OMEDICAL ENGINEERING TECHNICIAN: RYAN PATEL M.D. CLIA NUMBER [id number] [facility] [place]. [id number] HEMOGLOBIN [id number] 03:24:54* Test Item Value Reference Range Interpretation Comme nts HEMOGLOBIN A1c (test code = 25629) 7.0 % 4.2-5.6 H [employer] GUIDELINES FOR HGB A1C: PREDIABETES/INCREASED RISK . . . . . . . 5.7-6.4% DIAGNOSIS OF DIABETES . . . . . . . . . >=6.5% WITH CONFIRMATION OR APPROPRIATE SYMPTOMS NOTE: ASSAY MAY BE AFFECTED BY HEMOGLOBINOPATHIES (SICKLE CELL ANEMIA, S-C DISEASE, OTHERS) OR ARTIFICIALLY LOWERED BY DECREASED RED CELL SURVIVAL (HEMOLYTIC ANEMIAS, BLOOD LOSS, ETC.). CONSIDER ALTERNATE TESTING OR LABORATORY CONSULTATION. CBC W/O DIFF, WITH [id number] 02:42:50* Test Item Value Reference Range Interpretation Comme nts WBC (test code = 1001) 12.8 K/UL 3.5-11.0 H RBC (test code = 1002) 5.38 M/UL 4.50-6.10 HEMOGLOBIN (test code = 1003) 16.4 G/DL 13.5-17.0 HEMATOCRIT (test code = 1004) 47.0 % 40.0-51.0 MCV (test code = 1005) 87.4 fL 80.0-99.0 MCH (test code = 1006) 30.5 PG 25.0-33.0 MCHC (test code = 1007) 34.9 G/DL 31.0-36.0 PLATELET COUNT (test code = 1015) 229 K/UL 130-400 POCT GLUCOSE (AUTOMATED)2021-10-28 17:40:58* Test Item Value Reference Range Interpretation Comme [facility] POCT GLU (test code = 5186082729) 136 mg/dL 70-110 H Lab Interpretation (test cod e = 41755-4) Abnormal [facility] GLUCOSE (AUTOMATED)2021-10-28 14:41:21* Test Item Value Reference Range Interpretation Comme [facility] POCT GLU (test code = 1107880762) 149 mg/dL 70-110 H Lab Interpretation (test cod e = 28187-5) Abnormal [facility] METABOLIC PANEL (NA, K, CL, CO2, GLUCOSE, BUN, CREATININE, CA)2021-10-28 11:53:19* Test Item Value Reference Range Interpretation Comme nts NA (test code = 7943704972) 135 mmol/L 135-145 K (test code = 4474266882) 3.9 mmol/L 3.5-5.0 CL (test code = 5376793880) 103 mmol/L 98-108 CO2 TOTAL (test code = 3795709955) 25 mmol/L 23-31 AGAP (test code = 0424623975) 2-16 BUN (test code = 2383212947) 12 mg/dL 7-23 GLUCOSE (test code = 1364086775) 118 mg/dL 70-110 H CREATININE (test code = 5065937676) 0.64 mg/dL 0.60-1.25 CALCIUM (test code = 9921959922) 8.4 mg/dL 8.6-10.6 L eGFR (test code = 6710746593) mL/min/1.73m2 GUERLINE (test code = GUERLINE) Association of Glomerular Filtration Rate (GFR) and Staging of Kidney Disease* + --+ --+ ------+| GFR (mL/min/1.73 m2) ?| With Kidney Damage ?| ?Without Kidney Damage+ --------+ --------+ +| ?>90 ?| ?Stage one ?| ? Normal ?+ ---+ ---+ -------+| ?60-89 ?| ?Stage two ?| ? Decreased GFR ? + --+ --+ ------+| ?30-59 ?| ?Stage three ?| ? Stage three ? + --+ --+ ------+| ?15-29 ?| ?Stage four ? | ? Stage four ?+ ---+ ---+ -------+| ?<15 (or dialysis) ? ?| ?Stage five ? | ? Stage five ?+ ---+ ---+ -------+ *Each stage assumes the associated GFR level has been in effect for at least three months. ?Stages 1 to 5, with or without kidney disease, indicate chronic kidney disease. Notes: Determination of stages one and two (with eGFR >59mL/min/1.73 m2) requires estimation of kidney damage for at least three months as defined by structural or functional abnormalities of the kidney, manifested by either:Pathological abnormalities or Markers of kidney damage (including abnormalities in the composition of the blood or urine or abnormalities in imaging tests). Lab Interpretation (test code = 56067-3) Abnormal [facility] WITH [id number] 11:21:56* Test Item Value Reference Range Interpretation Comme nts WBC (test code = 6690-2) See_Comment H [Automated Say-Hey] The system which generated this result transmitted reference range: 4.20 - 10.70 10*3/?L. The reference range was not used to interpret this result as normal/abnormal. RBC (test code = 789-8) See_Comment [Automated UNXa ge] The system which generated this result transmitted reference range: 4.26 - 5.52 10*6/?L. The reference range was not used to interpret this result as normal/abnormal. HGB (test code = 718-7) 15.9 g/dL 12.2-16.4 HCT (test code = 4544-3) 48.2 % 38.4-49.3 MCV (test code = 787-2) 92.0 fL 81.7-95.6 MCH (test code = 785-6) 30.3 pg 26.1-32.7 MCHC (test code = 786-4) 33.0 g/dL 31.2-35.0 RDW-SD (test code = 24083-6) 41.1 fL 38.5-51.6 RDW-CV (test code = 788-0) 12.1 % 12.1-15.4 PLT (test code = 777-3) See_Comment [Automated UNXa ge] The system which generated this result transmitted reference range: 150 - 328 10*3/?L. The reference range was not used to interpret this result as normal/abnormal. MPV (test code = 72241-7) 11.4 fL 9.8-13.0 NRBC/100 WBC (test code = 3381439168) See_Comment [Automated Fitmo ssage] The system which generated this result transmitted reference range: 0.0 - 10.0 /100 WBCs. The reference range was not used to interpret this result as normal/abnormal. NRBC x10^3 (test code = 3464253596) <0.01 See_Comment [Automated UNXa ge] The system which generated this result transmitted reference range: 10*3/?L. The reference range was not used to interpret this result as normal/abnormal. GRAN MAT (NEUT) % (test code = 770-8) 60.9 % IMM GRAN % (test code = 4863766931) 0.40 % LYMPH % (test code = 736-9) 26.2 % MONO % (test code = 5905-5) 9.7 % EOS % (test code = 713-8) 2.1 % BASO % (test code = 706-2) 0.7 % GRAN MAT x10^3(ANC) (test code = 8947003037) 6.91 10*3/uL 1.99-6.95 IMM GRAN x10^3 (test code = 3835655836) 0.05 10*3/uL 0.00-0.06 LYMPH x10^3 (test code = 731-0) 2.97 10*3/uL 1.09-3.23 MONO x10^3 (test code = 742-7) 1.10 10*3/uL 0.36-1.02 H EOS x10^3 (test code = 711-2) 0.24 10*3/uL 0.06-0.53 BASO x10^3 (test code = 704-7) 0.08 10*3/uL 0.01-0.09 Lab Interpretation (test code = 49157-1) Abnormal [facility] GLUCOSE (AUTOMATED)2021-10-28 11:20:40* Test Item Value Reference Range Interpretation Comme nts POCT GLU (test code = 3722170145) 111 mg/dL 70-110 H Lab Interpretation (test cod e = 74055-9) Abnormal [facility] GLUCOSE (AUTOMATED)2021-10-28 06:27:21* Test Item Value Reference Range Interpretation Comme nts POCT GLU (test code = 4917955265) 187 mg/dL 70-110 H Lab Interpretation (test cod e = 92962-7) Abnormal [facility] GLUCOSE (AUTOMATED)2021-10-28 06:27:21* Test Item Value Reference Range Interpretation Comme nts POCT GLU (test code = 4365130621) 141 mg/dL 70-110 H Lab Interpretation (test cod e = 13380-4) [facility] 02:34:19* Test Item Value Reference Range Interpretation Comme nts LVOT stroke volume (test code = 1836375385) 69.20 cm3 EF(Teich) (test code = 9417155180) 52.20 % LVIDD (test code = 8573088956) 4.10 cm LVIDS (test code = 1165492927) 3.00 cm IVS (test code = 9015487891) 1.18 cm LVPWD (test code = 6326443338) 1.23 cm LVOT diameter (test code = 0136405019) 2.25 cm FS (test code = 6854049922) 26 % MV Peak E Onofre (test code = 0014638186) 67.6 cm/s MV Peak A Onofre (test code = 1622275380) 45.3 cm/s E/A ratio (test code = 3852109757) ratio E wave decelartion time (test code = 3617100158) 0.23 s MV E/e' septal (test code = 9378956856) 8.1 cm/s LA volume (BP) (test code = 4908992565) 47.7 mL LVOT peak onofre (test code = 6045803987) 101.2 cm/s LVOT mn grad (test code = 3180157972) mmHg LA size (test code = 4524966049) 4.1 cm LAV(MOD-sp2) (test code = 9086379982) 44.10 mL LAV(MOD-sp4) (test code = 8520216685) 48.70 mL Tapse (test code = 3195691723) 1.91 cm Aortic valve mean velocity (test code = 2629647703) 70.6 cm/s Ao peak onofre (test code = 1829445256) 106.4 cm/s Ao VTI (test code = 3745681953) 16.4 cm AV LVOT peak gradient (test code = 7872855625) mmHg LVOT peak VTI (test code = 8997222568) 17.4 cm AV area by cont VTI (test code = 5819020716) 4.2 cm2 AV area peak onofre (test code = 1722464435) 3.8 cm2 LV V1 mean (test code = 3021753574) 63.50 cm/s Ao max PG (test code = 2333532924) 4.50 mm[Hg] MV Prop V (test code = 3518179195) 50.70 cm/s Ao root annulus (test code = 7835127025) 3.3 cm Ao root diam (test code = 0917783573) 3.30 cm Inferior Vena Cava Diameter (test code = 6979129631) 1.51 cm AV peak gradient (test code = 9122265515) mmHg AV valve area (test code = 1199987265) 4.20 cm2 AV mean gradient (test code = 1978458748) mmHg Aortic root (test code = 3251436784) 3.3 cm PW (test code = 6395470884) 1.23 cm 0.6-1.1 EF - 2D (test code = 48227617) 52.20 % Interventricular Septum Diastolic Thickness by 2D (test code = 8711039) 1.18 cm Radiology Study observation (narrative) (test code = 23327-8) GUERLINE (test code = GUERLINE) ?Right?Ventricle: Right ventricle is normal in size and function. ?Tricuspid?Valve: Tricuspid valve is grossly normal. Trace transvalvular regurgitation. Insufficient regurgant jet to estimate RVSP. ?IVC/SVC: Estimated RA pressure 5 mmHG. ?Left?Ventricle: Low normal systolic function with a visually estimated EF of 50 - 55%. VitalsHeight Weight BSA (Calculated - sq m) BP Pulse 5' 7" (1.702 m) 213 lb (96.6 kg) 2.13 sq meters 152/97 75 [facility] GLUCOSE (AUTOMATED)2021-10-27 22:19:08* Test Item Value Reference Range Interpretation Comme nts POCT GLU (test code = 2201777075) 100 mg/dL 70-110 Lab Interpretation (test cod e = 57946-8) Normal [facility] GLUCOSE (AUTOMATED)2021-10-27 22:19:03* Test Item Value Reference Range Interpretation Comme nts POCT GLU (test code = 8117945976) 113 mg/dL 70-110 H Lab Interpretation (test cod e = 06549-4) Abnormal [facility] GLUCOSE (AUTOMATED)2021-10-27 17:25:45* Test Item Value Reference Range Interpretation Comme nts POCT GLU (test code = 1975749471) 136 mg/dL 70-110 H Lab Interpretation (test cod e = 86798-3) [facility] 12:09:[facility]* Test Item Value Reference Range Interpretation Comme nts LIPASE (test code = 9317763072) 65 U/L 0-220 Lab Interpretation (test cod e = 08827-9) [facility]. METABOLIC PANEL (94511)2021-10-27 11:19:37* Test Item Value Reference Range Interpretation Comme nts NA (test code = 4464367913) 134 mmol/L 135-145 L K (test code = 0470435257) 4.1 mmol/L 3.5-5.0 CL (test code = 9882501851) 104 mmol/L 98-108 CO2 TOTAL (test code = 0661020225) 25 mmol/L 23-31 AGAP (test code = 1350344867) 2-16 BUN (test code = 6598053881) 10 mg/dL 7-23 GLUCOSE (test code = 8623084754) 119 mg/dL 70-110 H CREATININE (test code = 4448807381) 0.58 mg/dL 0.60-1.25 L TOTAL BILI (test code = 4643537460) 0.9 mg/dL 0.1-1.1 CALCIUM (test code = 6246127604) 7.7 mg/dL 8.6-10.6 L T PROTEIN (test code = 4541766047) 6.8 g/dL 6.3-8.2 ALBUMIN (test code = 2436619241) 3.4 g/dL 3.5-5.0 L ALK PHOS (test code = 2049466199) 82 U/L 34-122 ALTv (test code = 1742-6) 24 U/L 5-50 AST(SGOT) (test code = 7701406063) 41 U/L 13-40 H eGFR (test code = 4658159785) mL/min/1.73m2 GUERLINE (test code = GUERLINE) Association of Glomerular Filtration Rate (GFR) and Staging of Kidney Disease* + --+ --+ ------+| GFR (mL/min/1.73 m2) ?| With Kidney Damage ?| ?Without Kidney Damage+ --------+ --------+ +| ?>90 ?| ?Stage one ?| ? Normal ?+ ---+ ---+ -------+| ?60-89 ?| ?Stage two ?| ? Decreased GFR ? + --+ --+ ------+| ?30-59 ?| ?Stage three ?| ? Stage three ? + --+ --+ ------+| ?15-29 ?| ?Stage four ? | ? Stage four ?+ ---+ ---+ -------+| ?<15 (or dialysis) ? ?| ?Stage five ? | ? Stage five ?+ ---+ ---+ -------+ *Each stage assumes the associated GFR level has been in effect for at least three months. ?Stages 1 to 5, with or without kidney disease, indicate chronic kidney disease. Notes: Determination of stages one and two (with eGFR >59mL/min/1.73 m2) requires estimation of kidney damage for at least three months as defined by structural or functional abnormalities of the kidney, manifested by either:Pathological abnormalities or Markers of kidney damage (including abnormalities in the composition of the blood or urine or abnormalities in imaging tests). Lab Interpretation (test code = 67621-4) [facility] Test Item Value Reference Range Interpretation Comme nts MAGNESIUM (test code = 0154265933) 1.7 mg/dL 1.7-2.4 Lab Interpretation (test cod e = 48613-3) [facility]* Test Item Value Reference Range Interpretation Comme nts PHOSPHORUS (test code = 7874964829) 3.3 mg/dL 2.5-5.0 Lab Interpretation (test cod e = 43000-5) [facility] [id number] 10:30:30* Test Item Value Reference Range Interpretation Comme nts WBC (test code = 6690-2) See_Comment [Automated Say[employer]Hey] The system which generated this result transmitted reference range: 4.20 - 10.70 10*3/?L. The reference range was not used to interpret this result as normal/abnormal. RBC (test code = 789-8) See_Comment [Automated [employer]] The system which generated this result transmitted reference range: 4.26 - 5.52 10*6/?L. The reference range was not used to interpret this result as normal/abnormal. HGB (test code = 718-7) 15.3 g/dL 12.2-16.4 HCT (test code = 4544-3) 45.4 % 38.4-49.3 MCV (test code = 787-2) 91.7 fL 81.7-95.6 MCH (test code = 785-6) 30.9 pg 26.1-32.7 MCHC (test code = 786-4) 33.7 g/dL 31.2-35.0 RDW-SD (test code = 68918-0) 41.8 fL 38.5-51.6 RDW-CV (test code = 788-0) 12.4 % 12.1-15.4 PLT (test code = 777-3) See_Comment [Automated messa ge] The system which generated this result transmitted reference range: 150 - 328 10*3/?L. The reference range was not used to interpret this result as normal/abnormal. MPV (test code = 84989-4) 10.9 fL 9.8-13.0 NRBC/100 WBC (test code = 6100508622) See_Comment [Automated Fitmo ssage] The system which generated this result transmitted reference range: 0.0 - 10.0 /100 WBCs. The reference range was not used to interpret this result as normal/abnormal. NRBC x10^3 (test code = 2262672908) <0.01 See_Comment [Automated messa ge] The system which generated this result transmitted reference range: 10*3/?L. The reference range was not used to interpret this result as normal/abnormal. GRAN MAT (NEUT) % (test code = 770-8) 53.0 % IMM GRAN % (test code = 7627508627) 0.30 % LYMPH % (test code = 736-9) 32.5 % MONO % (test code = 5905-5) 11.2 % EOS % (test code = 713-8) 2.2 % BASO % (test code = 706-2) 0.8 % GRAN MAT x10^3(ANC) (test code = 8488104289) 4.99 10*3/uL 1.99-6.95 IMM GRAN x10^3 (test code = 9946245855) 0.03 10*3/uL 0.00-0.06 LYMPH x10^3 (test code = 731-0) 3.07 10*3/uL 1.09-3.23 MONO x10^3 (test code = 742-7) 1.06 10*3/uL 0.36-1.02 H EOS x10^3 (test code = 711-2) 0.21 10*3/uL 0.06-0.53 BASO x10^3 (test code = 704-7) 0.08 10*3/uL 0.01-0.09 Lab Interpretation (test code = 78615-7) Abnormal [facility] GLUCOSE (AUTOMATED)2021-10-27 07:00:25* Test Item Value Reference Range Interpretation Comme nts POCT GLU (test code = 1650365508) 102 mg/dL 70-110 Lab Interpretation (test cod e = 90039-7) Normal [facility] GLUCOSE (AUTOMATED)2021-10-27 03:09:37* Test Item Value Reference Range Interpretation Comme nts POCT GLU (test code = 9055226307) 115 mg/dL 70-110 H Lab Interpretation (test cod e = 28502-5) [facility] 01:49:24* Test Item Value Reference Range Interpretation Comme nts HGB (test code = 718-7) 14.9 g/dL 12.2-16.4 Lab Interpretation (test cod e = 91929-4) Normal [facility] GLUCOSE (AUTOMATED)2021-10-26 22:26:41* Test Item Value Reference Range Interpretation Comme nts POCT GLU (test code = 9373506192) 113 mg/dL 70-110 H Lab Interpretation (test cod e = 40868-0) Abnormal [facility] GLUCOSE (AUTOMATED)2021-10-26 17:58:41* Test Item Value Reference Range Interpretation Comme nts POCT GLU (test code = 1709154505) 150 mg/dL 70-110 H Lab Interpretation (test cod e = 64897-5) [facility]normal [facility] CenterGLY[facility]OSYL[facility]GLOBIN (A1C)2021-10-26 16:23:22* Test Item Value Reference Range Interpretation Comme nts HGB A1C (test code = 4548-4) 9.5 % 4.0-5.7 H GUERLINE (test code = GUERLINE) Reference RangesNormal: <5.7%Prediabetes: 5.7 - 6.4%Diabetes: > 6.5% Lab Interpretation (test code = 25406-0) [facility]normal [facility]AB[facility] Confirmation (Lab Only)2021-10-26 15:47:05* Test Item Value Reference Range Interpretation Comme nts ABO & RH (test code = 20) O Positive Performed at [facility] Laboratory Services [facility] Blood [place] [address]Toll Free: [phone] No. [id number] [facility] CenterType and Screen - ONCE [id number] 15:43:17* Test Item Value Reference Range Interpretation Comme nts ABO & RH (test code = 20) O Positive Performed at [facility] Laboratory Services - [facility] Blood [place] [address]Toll Free: [phone] No. [id number] IAT (test code = 1185) Negative Performed at [facility] Laboratory Health System - [facility] Blood [place] [address]Toll Free: [phone] No. [id number] [facility] CenterTROPONIN [id number] 15:33:13* Test Item Value Reference Range Interpretation Comments TROPONIN I (test code = 2799761174) 0.010 ng/mL See_Comment [Automated message] The system which generated this result transmitted reference range: <=0.034. The reference range was not used to interpret this result as normal/abnormal. GUERLINE (test code = GUERLINE) Reference (Normal) Range (defined by the 99th percentile reference limit): <= 0.034 ng/mL Note: Cardiac troponin begins to rise 3-4 hours after the onset of ischemia. Repeat in 4-6 hours if the sample was drawn within 3-4 hours of the onset of the symptom and found normal. Diagnosis of myocardial injury is made with acute changes in cTn concentrations with at least one serial sample above the 99th percentile upper reference limit (URL), taken together with the patient's clinical presentation. Biotin has been reported to cause a negative bias, interpret results relative to patient's use of biotin. Lab Interpretation (test code = 61148-9) Normal [facility] CenterN-TERMINAL [id number] 15:30:12* Test Item Value Reference Range Interpretation Comme nts NT-proBNP (test code = 5864113142) 27 pg/mL See_Comment [Automated message] The system which generated this result transmitted reference range: <=125. The reference range was not used to interpret this result as normal/abnormal. GUERLINE (test code = GUERLINE) Biotin has been reported to cause a negative bias, interpret results relative to patient's use of biotin. Lab Interpretation (test code = 86968-3) Normal [facility] CenterETHANOL2022-03-06 15:25:50* Test Item Value Reference Range Interpretation Comme nts ALCOHOL (test code = 9718127417) <10 mg/dL GUERLINE (test code = GUERLINE) <10 [id number] Toxic>100 Depression of [employer]IVER>400 Fatalities Reported [facility] CenterAMMONIA, [id number] 15:25:40* Test Item Value Reference Range Interpretation Comme nts AMMONIA (test code = 9742664539) <9 9-33 L Lab Interpretation (test cod e = 13972-1) Abnormal [facility] CenterCOMP. METABOLIC PANEL (35941)2021-10-26 15:21:09* Test Item Value Reference Range Interpretation Comme nts NA (test code = 0668794154) 138 mmol/L 135-145 K (test code = 1550518725) 4.5 mmol/L 3.5-5.0 CL (test code = 9854453118) 106 mmol/L 98-108 CO2 TOTAL (test code = 4203956436) 23 mmol/L 23-31 AGAP (test code = 0578424099) 2-16 BUN (test code = 4589217721) 9 mg/dL 7-23 GLUCOSE (test code = 6623768633) 231 mg/dL 70-110 H CREATININE (test code = 7937560149) 0.54 mg/dL 0.60-1.25 L TOTAL BILI (test code = 7143646235) 0.4 mg/dL 0.1-1.1 CALCIUM (test code = 0047393465) 8.6 mg/dL 8.6-10.6 T PROTEIN (test code = 0814008895) 7.8 g/dL 6.3-8.2 ALBUMIN (test code = 3108044400) 4.3 g/dL 3.5-5.0 ALK PHOS (test code = 5819377163) 131 U/L 34-122 H ALTv (test code = 1742-6) 30 U/L 5-50 AST(SGOT) (test code = 0950236296) 34 U/L 13-40 eGFR (test code = 1945576334) mL/min/1.73m2 GUERLINE (test code = GUERLINE) Association of Glomerular Filtration Rate (GFR) and Staging of Kidney Disease* + --+ --+ ------+| GFR (mL/min/1.73 m2) ?| With Kidney Damage ?| ?Without Kidney Damage+ --------+ --------+ +| ?>90 ?| ?Stage one ?| ? Normal ?+ ---+ ---+ -------+| ?60-89 ?| ?Stage two ?| ? Decreased GFR ? + --+ --+ ------+| ?30-59 ?| ?Stage three ?| ? Stage three ? + --+ --+ ------+| ?15-29 ?| ?Stage four ? | ? Stage four ?+ ---+ ---+ -------+| ?<15 (or dialysis) ? ?| ?Stage five ? | ? Stage five ?+ ---+ ---+ -------+ *Each stage assumes the associated GFR level has been in effect for at least three months. ?Stages 1 to 5, with or without kidney disease, indicate chronic kidney disease. Notes: Determination of stages one and two (with eGFR >59mL/min/1.73 m2) requires estimation of kidney damage for at least three months as defined by structural or functional abnormalities of the kidney, manifested by either:Pathological abnormalities or Markers of kidney damage (including abnormalities in the composition of the blood or urine or abnormalities in imaging tests). Lab Interpretation (test code = 91038-7) Abnormal [facility] CenterLIPASE2022-03-[facility] 15:21:09* Test Item Value Reference Range Interpretation Comme nts LIPASE (test code = 3767670350) 120 U/L 0-220 Lab Interpretation (test cod e = 36708-8) Normal [facility] CenterACTIVATED PARTIAL THRMPLAS [id number] 15:20:08* Test Item Value Reference Range Interpretation Comme [facility] APTT Patient (test code = 3173-2) See_Comment [Automated message] The system which generated this result transmitted reference range: 23 - 38 Seconds. The reference range was not used to interpret this result as normal/abnormal. GUERLINE (test code = GUERLINE) The [facility] patient population mean normal value for aPTT is 30 seconds. Lab Interpretation (test code = 75027-1) Normal [facility] CenterPROTHROMBIN TIME / [id number] 15:18:07* Test Item Value Reference Range Interpretation Comme [facility] PROTIME PATIENT (test code = 5964-2) See_Comment [Automated messa ge] The system which generated this result transmitted reference range: 12.0 - 14.7 Seconds. The reference range was not used to interpret this result as normal/abnormal. INR (test code = 6301-6) Normal INR <1.1; Warfarin Therapeutic range 2.0 to 3.0 or 2.5 to 3.5, depending upon the indications. Lab Interpretation (test code = 87551-2) Normal [facility] CenterCBC WITH [id number] 15:08:50* Test Item Value Reference Range Interpretation Comme [facility] WBC (test code = 6690-2) See_Comment H [Automated messa ge] The system which generated this result transmitted reference range: 4.20 - 10.70 10*3/?L. The reference range was not used to interpret this result as normal/abnormal. RBC (test code = 789-8) See_Comment [Automated messa ge] The system which generated this result transmitted reference range: 4.26 - 5.52 10*6/?L. The reference range was not used to interpret this result as normal/abnormal. HGB (test code = 718-7) 16.7 g/dL 12.2-16.4 H HCT (test code = 4544-3) 50.2 % 38.4-49.3 H MCV (test code = 787-2) 91.6 fL 81.7-95.6 MCH (test code = 785-6) 30.5 pg 26.1-32.7 MCHC (test code = 786-4) 33.3 g/dL 31.2-35.0 RDW-SD (test code = 02559-8) 42.5 fL 38.5-51.6 RDW-CV (test code = 788-0) 12.5 % 12.1-15.4 PLT (test code = 777-3) See_Comment [Automated messa ge] The system which generated this result transmitted reference range: 150 - 328 10*3/?L. The reference range was not used to interpret this result as normal/abnormal. MPV (test code = 91663-8) 10.2 fL 9.8-13.0 NRBC/100 WBC (test code = 5381027712) See_Comment [Automated me ssage] The system which generated this result transmitted reference range: 0.0 - 10.0 /100 WBCs. The reference range was not used to interpret this result as normal/abnormal. NRBC x10^3 (test code = 6214356127) <0.01 See_Comment [Automated messa ge] The system which generated this result transmitted reference range: 10*3/?L. The reference range was not used to interpret this result as normal/abnormal. GRAN MAT (NEUT) % (test code = 770-8) 61.9 % IMM GRAN % (test code = 8431418740) 0.40 % LYMPH % (test code = 736-9) 25.4 % MONO % (test code = 5905-5) 10.6 % EOS % (test code = 713-8) 0.7 % BASO % (test code = 706-2) 1.0 % GRAN MAT x10^3(ANC) (test code = 9084494762) 6.93 10*3/uL 1.99-6.95 IMM GRAN x10^3 (test code = 3678486135) 0.04 10*3/uL 0.00-0.06 LYMPH x10^3 (test code = 731-0) 2.84 10*3/uL 1.09-3.23 MONO x10^3 (test code = 742-7) 1.18 10*3/uL 0.36-1.02 H EOS x10^3 (test code = 711-2) 0.08 10*3/uL 0.06-0.53 BASO x10^3 (test code = 704-7) 0.11 10*3/uL 0.01-0.09 H Lab Interpretation (test code = 08438-0) Abnormal [facility] CenterURINALYSIS2021-01-28 02:47:00* Test Item Value Reference Range Interpretation Comme nts APPEARANCE (test code = 2139569947) Clear Clear COLOR (test code = 7003732363) Straw Yellow A PH (test code = 4934346823) 4.8-8.0 SP GRAVITY (test code = 2504153113) 1.003-1.030 GLU U QUAL (test code = 6472895283) Normal Normal BLOOD (test code = 1338139896) Negative Negative KETONES (test code = 3409626166) Negative Negative PROTEIN (test code = 2887-8) Negative Negative UROBILIN (test code = 9207207862) Normal Normal BILIRUBIN (test code = 0177865566) Negative Negative NITRITE (test code = 4095931213) Negative Negative LEUK STEVEN (test code = 6869568776) Negative Negative RBC/HPF (test code = 0660636794) See_Comment [Automated Say-Hey] The system which generated this result transmitted reference range: 0 - 3 HPF. The reference range was not used to interpret this result as normal/abnormal. WBC/HPF (test code = 2340788915) <1 See_Comment [Automated Say-Hey] The system which generated this result transmitted reference range: 0 - 5 HPF. The reference range was not used to interpret this result as normal/abnormal. BACTERIA (test code = 4480000871) Few Negative A SQ EPITH (test code = 6393318793) <1 HPF Lab Interpretation (test code = 27452-1) Abnormal [facility] CenterCT ABDOMEN PELVIS WO [id number] 01:47:221. Suspected low-grade sigmoid diverticulitis without evidence forperforation or abscess.2. Hepaticsteatosis is present.3. The appendix is not definitely identified on this study.4. No evidence for ureteral calculus or hydronephrosis is presentbilaterally. RL: 2831 ORDERING PHYSICIAN: COREY DEUTSCH ABDOMEN AND PELVIS CT WITHOUT INTRAVENOUS CONTRAST. DATE: ?09/18/2020 CLINICAL INDICATIONS: ?Flank pain. TECHNIQUE: ?Axial computed tomographic images of the abdomen and pelviswere obtained without intravenous contrast. CT scan was performed accordingto ALARA (As Low as Reasonably Achievable). COMPARISON: None. Abdomen findings: The lung bases are clear. The cardiac apex isunremarkable. Extensive hepatic steatosis is present. Thespleen, pancreas, gallbladder,adrenal glands and kidneys have an unremarkable noncontrast appearance. Noevidence for obstructing ureteral calculus, hydroureter or hydronephrosisis present bilaterally. The stomach, small bowel and colon within the abdomen demonstrate noevidence for obstruction or inflammation. The appendix is not definitelyidentified on this study. No secondary findings of acute appendicitis arepresent. No adenopathy or free fluid are identified in the abdomen. No acute osseousabnormality is demonstrated. Pelvis findings: A short segment of sigmoid colonic wall thickening andtrace pericolonic edema is identified in a region of multiple diverticula.This is best visualized on images 103 through 116 of series 2. The findingsare suspected to result from a low-grade diverticulitis involving the midsigmoid colon. The small bowel is unremarkable. The urinary bladder is moderatelydistended. The prostate gland is within normal limits of size. Noadenopathy or free fluid are identified in the pelvis. No acute osseousabnormality is demonstrated. Rust, Radiant Results Inft User -09/18/2020 7:48 PM CSTORDERING PHYSICIAN: COREY DEUTSCHABDOMANNALISA AND PELVIS CT WITHOUT INTRAVENOUS CONTRAST.DATE: 09/18/2020LINICAL INDICATIONS: Flank pain.TECHNIQUE: Axial computed tomographic imagesof the abdomen and pelviswere obtained without intravenous contrast. CT scan was performed accordingto ALARA (As Low as Reasonably Achievable).COMPARISON: None.Abdomen findings: The lung bases are elizabeth ar. The cardiac apex isunremarkable.Extensive hepatic steatosis is present. The spleen, pancreas, gallbladder,adrenal glands and kidneys have an unremarkable noncontrast appearance. Noevidence for obstructing ureteral calculus, hydroureter or hydronephrosisis present bilaterally.The stomach, small bowel and colon within the abdomen demonstrate noevidence for obstruction or inflammation. The appendix is not definitelyidentified on this study. No secondary findings of acute appendicitis arepresent.No adenopathy or free fluid are identified in the abdomen. No acute osseousabnormality is demonstrated.Pelvis findings: A short segment of sigmoid colonic wall thickening andtrace pericolonic edema is identified in a region of multiple diverticula.This is best visualized on images 103 through 116 of series 2. The findingsare suspected to result from a low- grade diverticulitis involving the midsigmoid colon.The small bowel is unremarkable. The urinary bladder is moderatelydistended. The prostate gland is within normal limits of size. Noadenopathy or free fluid are identified in the pelvis. Noacute osseousabnormality is demonstrated.IMPRESSION1. Suspected low- grade sigmoid diverticulitis without evidence forperforation or abscess.2. Hepatic steatosis is present.3. The appendix is not definitely identified on this study.4. No evidence for ureteral calculus or hydronephrosis is presentbila terally.RL: 2831 [facility] 00:06:00* Test Item Value Reference Range Interpretation Comme nts LIPASE (test code = 6613902963) 155 U/L 0-220 Lab Interpretation (test cod e = 95275-4) Normal [facility]. METABOLIC PANEL (17596)2020-09-18 23:50:00* Test Item Value Reference Range Interpretation Comme nts NA (test code = 8524085509) 131 mmol/L 135-145 L K (test code = 7444440038) 3.6 mmol/L 3.5-5 CL (test code = 5088916734) 99 mmol/L 98-108 CO2 TOTAL (test code = 2408474477) 21 mmol/L 23-31 L AGAP (test code = 4293034257) 2-16 BUN (test code = 3798914824) 6 mg/dL 7-23 L GLUCOSE (test code = 4359807198) 139 mg/dL 70-110 H CREATININE (test code = 2367783077) 0.56 mg/dL 0.6-1.25 L TOTAL BILI (test code = 2803773403) 0.8 mg/dL 0.1-1.1 CALCIUM (test code = 3163047459) 8.4 mg/dL 8.6-10.6 L T PROTEIN (test code = 7867753025) 7.1 g/dL 6.3-8.2 ALBUMIN (test code = 6269110560) 3.7 g/dL 3.5-5 ALK PHOS (test code = 5374451757) 143 U/L 34-122 H ALTv (test code = 1742-6) 85 U/L 5-50 H AST(SGOT) (test code = 9872275921) 119 U/L 13-40 H eGFR Calculation (Non-) (test code = 2607093637) mL/min/1.73m2 eGFR Calculation () (test code = 8912768629) mL/min/1.73m2 GUERLINE (test code = GUERLINE) Association of Glomerular Filtration Rate (GFR) and Staging of Kidney Disease* + --+ --+ ------+| GFR (mL/min/1.73 m2) ?| With Kidney Damage ?| ?Without Kidney Damage+ --------+ --------+ +| ?>90 ?| ?Stage one ?| ? Normal ?+ ---+ ---+ -------+| ?60-89 ?| ?Stage two ?| ? Decreased GFR ? + --+ --+ ------+| ?30-59 ?| ?Stage three ?| ? Stage three ? + --+ --+ ------+| ?15-29 ?| ?Stage four ? | ? Stage four ?+ ---+ ---+ -------+| ?<15 (or dialysis) ? ?| ?Stage five ? | ? Stage five ?+ ---+ ---+ -------+ *Each stage assumes the associated GFR level has been in effect for at least three months. ?Stages 1 to 5, with or without kidney disease, indicate chronic kidney disease. Notes: Determination of stages one and two (with eGFR >59mL/min/1.73 m2) requires estimation of kidney damage for at least three months as defined by structural or functional abnormalities of the kidney, manifested by either:Pathological abnormalities or Markers of kidney damage (including abnormalities in the composition of the blood or urine or abnormalities in imaging tests). Lab Interpretation (test code = 68379-2) Abnormal [facility] WITH [id number] 23:35:00* Test Item Value Reference Range Interpretation Comme nts WBC (test code = 6690-2) See_Comment H [Automated messa ge] The system which generated this result transmitted reference range: 4.20 - 10.70 10*3/?L. The reference range was not used to interpret this result as normal/abnormal. RBC (test code = 789-8) See_Comment [Automated messa ge] The system which generated this result transmitted reference range: 4.26 - 5.52 10*6/?L. The reference range was not used to interpret this result as normal/abnormal. HGB (test code = 718-7) 14.9 g/dL 12.2-16.4 HCT (test code = 4544-3) 42.2 % 38.4-49.3 MCV (test code = 787-2) 88.5 fL 81.7-95.6 MCH (test code = 785-6) 31.2 pg 26.1-32.7 MCHC (test code = 786-4) 35.3 g/dL 31.2-35 H RDW-SD (test code = 27908-1) 40.3 fL 38.5-51.6 RDW-CV (test code = 788-0) 12.3 % 12.1-15.4 PLT (test code = 777-3) See_Comment [Automated messa ge] The system which generated this result transmitted reference range: 150 - 328 10*3/?L. The reference range was not used to interpret this result as normal/abnormal. MPV (test code = 54020-7) 10.3 fL 9.8-13 NRBC/100 WBC (test code = 7810642319) See_Comment [Automated Fitmo ssage] The system which generated this result transmitted reference range: 0.0 - 10.0 /100 WBCs. The reference range was not used to interpret this result as normal/abnormal. NRBC x10^3 (test code = 2489567724) <0.01 See_Comment [Automated messa ge] The system which generated this result transmitted reference range: 10*3/?L. The reference range was not used to interpret this result as normal/abnormal. GRAN MAT (NEUT) % (test code = 770-8) 61.1 % IMM GRAN % (test code = 1670413808) 0.30 % LYMPH % (test code = 736-9) 28.1 % MONO % (test code = 5905-5) 8.4 % EOS % (test code = 713-8) 1.6 % BASO % (test code = 706-2) 0.5 % GRAN MAT x10^3(ANC) (test code = 8389946212) 6.68 10*3/uL 1.99-6.95 IMM GRAN x10^3 (test code = 2385957385) 0.03 10*3/uL 0-0.06 LYMPH x10^3 (test code = 731-0) 3.07 10*3/uL 1.09-3.23 MONO x10^3 (test code = 742-7) 0.92 10*3/uL 0.36-1.02 EOS x10^3 (test code = 711-2) 0.18 10*3/uL 0.06-0.53 BASO x10^3 (test code = 704-7) 0.06 10*3/uL 0.01-0.09 Lab Interpretation (test code = 93159-1) Abnormal [facility] [address] [phone] Patient Name: Ilya Prasad Medical Record#: [id number] Address: [address] [place] [address] City/State/Zip: [place] [address]: Noé Smith DO Insurance: Self Pay /Age/Sex: 1965/57/M Admit/Reg Date: 10/13/[address]: Beverly Smith DO Location: [facility]/ PCP: Pcp-Md ALYSHA Mackey Date of Service: 10/13/22 Order (s): XR chest 1V CPT Code: 35403 Report Number: [id number] Reason for Exam: Chest pain Clinical history: Chest pain, diabetes, hypertension X-ray chest one view COMPARISON: 04/29/2022 There is a limited inspiratory effort accentuating the cardiac size. There are no acute pulmonary infiltrates or pleural effusions. Pulmonary vascularity is normal. Old healed right rib fractures are demonstrated. IMPRESSION: 1. Limited inspiratory effort accentuating the cardiac size. Dictated By: Sony Garcia MD 10/14/22725 Signed By: Sony Garcia MD 10/14/22733 TD/TT: 10/14/22725 Tech: BNO03 cc: KHADAR HARGROVE* Noé Smith DO; PcpMd Anum MDCT head[facility]Tr[facility]cal [facility] [address] [address] Patient Name: Ilya Prasad Medical Record#: [id number] Address: [address] [place] [address] City/State/Zip: [place] [address]: Ash Lyons MD Insurance: Self Pay /Age/Sex: 1965/56/M Admit/Reg Date: 04/29/[address]: Ash Lyons MD Location: [facility]/ PCP: PcpMd ALYSHA Rowan Date of Service: 04/29/22 Order (s): CT head/brain wo contrast CPT Code: 61806 Report Number: [id number] Reason for Exam: headache EXAMINATION: CT BRAIN WITHOUT CONTRAST COMPARISON: None CLINICAL INFORMATION: Severe headache. The study was performed gkzysv46 hours of the patient's arrival at the hospital. TECHNIQUE: Axial images of the brain were obtained without contrast administration. Multiplanar reformatted images were obtained in the coronal sagittal planes. ALARA techniques utilized. FINDINGS: The ventricles and sulci are unremarkable. Schmitz-white matter interface is preserved. No intra-cranial hemorrhage or mass-effect. No extra-axial fluid collections. No midline shift. No acute territorial vascular insults. A 2.5 cm arachnoid cyst of themidline posterior fossa. Osseous structures are grossly intact. Paranasal sinuses are clear. Mastoid air cells are well aerated. Globes are unremarkable. IMPRESSION: No acute intracranial abnormalities. Dictated By: Domitila Mckinnon MD 04/29/22849 Signed By: Domitila Mckinnon MD 04/29/22899 TD/TT: 04/29/22849 Tech: BNO03 cc: [id number]; PCPNO* Ash Lyons MD; PcpMd Anum MDCT abdomen pelvis w contrastTrumbull [facility] Hospitalcal Center [address] [place], [place] [phone] Patient Name: Ilya Prasad Medical Record#: [id number] Address: [address] [place] [address] City/State/Zip: [place] [address]: Ash Lyons MD Insurance: Self Pay /Age/Sex: 1965/56/M Admit/Reg Date: 04/29/22 Ordering Dr: Ash Lyons MD Location: [facility]/ PCP: PcpMd ALYSHA Rowan Date of Service: 04/29/22 Order (s): CT abdomen pelvis w contrast CPT Code: 28589 Report Number: [id number] Reason for Exam: abd pain n/v EXAMINATION: CT ABDOMEN AND PELVIS WITH CONTRAST COMPARISON: None CLINICAL INFORMATION: Abdominal pain with nauseaand vomiting TECHNIQUE: Multiple transverse images were obtained through the abdomen and pelvis after oral contrast and during the IV administration of 50 cc Omnipaque 350 contrast material. The images were reformatted in the coronal and sagittal planes. Radiation dose lowering techniques were used with automated exposure control, adjusting the mA according to patient's size. FINDINGS: Visualized lung bases are clear. Liver is normal in size and contour. Diffuse hypoattenuation of the hepatic parenchyma. No focal hepatic lesions. No intra or extra hepatic biliary ductal dilatation. Gallbladde r is unremarkable, without radiodense calculi. Spleen is unremarkable. No focal pancreatic masses. No ductal dilatation. Adrenal glands are unremarkable. Kidneys are normal in size and shape. Symmetric renal enhancement. No hydronephrosis. No renal and/or ureteral calculi. No renal masses. Urinary b ladder is distended, and otherwise unremarkable. Prostate is tomographically unremarkable. No distention nor evidence of obstruction. Appendectomy. Multiple diverticula of the sigmoid colon,however, with mild symmetric residual thickening of the mid sigmoid colon, with minimal surrounding inflammatory changes. No other areas of bowel wall thickening. No intraperitoneal free air and/or free fluid.No lymphadenopathy. Moderate calcific atherosclerosis of the aortoiliac vasculature. IVC and main portal vein are unremarkable. Incidental retroaortic left renal vein. No lytic or blastic osseous lesions. Soft tissues are unremarkable. IMPRESSION: 1. Sigmoid colonic diagnosis, with findings concerning for localized mid sigmoid colonic low-grade diverticulitis, in the appropriate clinical context.2. Hepatic steatosis. Dictated By: Domitila Mckinnon MD 04/29/22 1007 Signed By: Domitila Mckinnon MD 04/29/22 1019 TD/TT: 04/29/22 1007 Tech: [id number] cc: MOE; PCPSYMONE* Ash Lyons MD; PcpMd Anum [facility] [address] [phone] Patient Name: Ilya Prasad Medical Record#: [id number] Address: [address] City/State/Zip: [place] [address]: Ash Lyons MD Insurance: Self Pay /Age/Sex: 1965/56/M Admit/Reg Date: 04/29/[address]: Ash Lyons MD Location: [facility]/ PCP: PcpMd ALYSHA Rowan Date of Service: 04/29/22 Order (s): XR chest 1V CPT Code: 65640 Report Number: [id number] Reason for Exam: cough, episode of cp yesterday PORTABLE CHESTSINGLE VIEW: COMPARISON: None. CLINICAL INFORMATION: Nausea, hypertension, diabetes. Portable erectAP view of the chest was submitted. Cardiomediastinal structures are within normal limits considering technique. No pleural fluid or pulmonary infiltrates are identified. There is a healed fracture suspected of the right posterior seventh rib. No acute fractures are identified. IMPRESSION: No acutecardiopulmonary disease. Dictated By: Angelito Jackman MD 04/29/22712 Signed By: Angelito Jackman MD 04/29/22719 TD/TT: 04/29/22712 Tech: [id number] cc: MOE; PCPSYMONE* Ash Lyons MD; PcpMd ALYSHA Rowan Notes Date/Time Note Provider Source 2022-10-13 21:18:00 [id number]:18:00 [facility] [address] [facility] [place] [address] Emergency Department Document Signed Patient: Ilya Prasad Medical Record#: [id number] : 1965 Acct:[id number] Age/Sex: 57 / M Admit/Reg Date: 10/13/22 Loc: [facility] Room: Report Number: [id number]: Noé Smith DO Arrival - Arrival ED Triage Note: patient is a heavy drinker; reports having headache blurred vision on right side; and nose bleeds worsening through last week; has been more confused lately and having mood swings; reports having some vomiting Headache HPI - General Primary Care Provider: Pcp-None,Md - General Chief Complaint: Headache Stated Complaint: bad headaches, nose blds for 3mnths, pressure high - History of Present Illness HPI Narrative: This is the emergency department evaluation of a 57-year-old male who presents emergency department with complaints of headache, nausea vomiting, nose bleed, elevated blood pressure, dizziness, confusion. Patient reports he drinks 18 alcoholic beverages per day. Patient also reports occasional hematemesis. Patient denies hematemesis currently. Past medical history: Alcoholism, diabetes, hypertension Past surgical history: Cataract surgery Social history: Positive tobacco and alcohol denies drugs Family history: Hypertension (Noé Smith) - Related Data Home Medications Medication Instructions Recorded Confirmed atorvastatin 80 mg tablet 80 mg PO DAILY 04/29/22 04/29/22 losartan 100 mg tablet 100 mg PO DAILY 04/29/22 04/29/22 metformin 500 mg tablet 500 mg PO BID 04/29/22 04/29/22 Previous Rx's Medication Instructions Recorded ondansetron 4 mg disintegrating 4 mg PO Q8H PRN Nausea #20 caps 04/29/22 tablet tramadol 50 mg tablet 50 mg PO Q6H PRN Severe Pain 04/29/22 (7-10) #14 tabs Allergies Allergy/AdvReac Type Severity Reaction Status Date / Time No Known Drug Allergies Allergy Verified 10/13/22 21:20 Review of Systems ROS: Constitutional: [No fevers, chills, sweats, weight loss] Eye: [Positive blurred vision] ENMT: [No ear pain, nasal congestion, sore throat] Respiratory: [No shortness of breath, cough] Cardiovascular: [No Chest pain, palpitations, positive dizziness/near syncope denies syncope, swelling in legs, dyspnea on exertion] Gastrointestinal: [Positive nausea vomiting denies diarrhea, abdominal pain, no difficulty swallowing] Genitourinary: [No hematuria, no dysuria, no hesitancy, no frequency, no incontinence] Musculoskeletal: [Positive for low back pain denies neck pain, joint pain, muscle pain, decreased range of motion] Integumentary: [No rash, pruritus, abrasions, no skin ulcers] Neurologic: [No focal weakness, no paresthesia, no headaches, numbness or tingling, no seizures or tremors] Psychiatric: [Occasionally impaired memory, normal mood] All other systems reviewed are negative or normal. (Noé Smith) Past Medical/Surgical History Medical History: Medical History (Last Updated 04/29/22 @ 05:54 by Michele Lau RN) Diabetes (Medical) E11.9 Fatty liver determined by biopsy (Medical) K76.0 Hyperlipemia (Medical) E78.5 Hypertension (Medical) I10 Surgical History: Surgical History (Last Updated 04/29/22 @ 05:54 by Michele Lau RN) Hx of appendectomy (Surgical) Z90.49 Family/Social History - Social History Current or Hx of Recreational Drug use: No 1. How Often Do You Have a Drink Containing Alcohol: e. 4 or More Times a Week Physical Exam Triage Vital Signs: Temperature 36.7 C 10/13/22 20:41 Temperature Source Oral 10/13/22 20:41 Pulse Rate 81 10/13/22 20:41 Respiratory Rate 18 10/13/22 20:41 Blood Pressure 142/86 H 10/13/22 20:41 Blood Pressure Source Automatic Cuff 10/13/22 20:41 Blood Pressure Mean 104 10/13/22 20:41 O2 Sat by Pulse Oximetry 94 L 10/13/22 20:41 Oxygen Delivery Method 10/13/22 20:41 Physical Exam: CONSTITUTIONAL: _well appearing in no acute distress SKIN: _Warm, dry, and intact without rash EYES: _extraocular movements are grossly intact, clear conjunctiva HENT: _Normocephalic, atraumatic, moist mucus membranes NECK: _no obvious swelling, normal range of motion PULMONARY: _normal chest rise and fall, no respiratory distress or stridor CARDIOVASCULAR: _regular rate, distal extremities are warm and well perfused GASTROINTESTINAL: _nondistended, non-tender GENITOURINARY: _deferred NEUROLOGIC: _normal speech, moves all extremities MUSCULOSKELETAL: _no gross deformities, atraumatic PSYCHIATRIC: _normal mood and affect (Noé Smith) Results/Orders - Results and Orders Medications Ordered: Discontinued Medications Dexamethasone Sodium Phosphate (Dexamethasone 10 Mg/Ml Inj) 10 mg IV ONCE ONE Stop: 10/13/22 21:19 Diphenhydramine HCl (Diphenhydramine 50 Mg/Ml Inj) 50 mg IV ONCE ONE Stop: 10/13/22 21:19 Sodium Chloride () 1,000 mls @ 9,999 mls/hr IV .Q6M ONE Stop: 10/13/22 21:23 Ketorolac Tromethamine (Ketorolac 60 Mg/2 Ml Inj) 60 mg IM ONCE ONE Stop: 10/13/22 21:19 Prochlorperazine (Prochlorperazine 10 Mg/2 Ml Inj) 10 mg IV ONCE ONE Stop: 10/13/22 21:19 EKG Orders: EKG Orders 10/13/22 21:17 EKG ED Electrocardiogram Stat Radiology Orders: Radiology Orders 10/13/22 21:17 CT abdomen pelvis w contrast Stat CT head/brain wo contrast Stat XR chest 1V Stat ED Provider Radiology Interpretation: One-view chest x-ray interpreted by me demonstrates no acute cardiopulmonary disease. (Noé Smith) MDM/COURSE Vital Signs Temperature 36.7 C 10/13/22 20:41 Pulse Rate 81 10/13/22 20:41 Respiratory Rate 18 10/13/22 20:41 Blood Pressure 142/86 H 10/13/22 20:41 O2 Sat by Pulse Oximetry 94 L 10/13/22 20:41 Temperature 36.7 C 10/13/22 20:41 Pulse Rate 81 10/13/22 20:41 Respiratory Rate 18 10/13/22 20:41 Blood Pressure 142/86 H 10/13/22 20:41 O2 Sat by Pulse Oximetry 94 L 10/13/22 20:41 Clinical Course: 10/13/22 22:45 Prior to completion of service this patient eloped from the emergency department (Noé Smith) - [facility] Medical decision making narrative: 10/13/22 21:19 The patient presented with headache At termination of care, on physical exam the patient has a regular rate and rhythm without murmur, lungs are clear to auscultation bilaterally. Patient's neurological status is at baseline. Patient symptoms have improved substantially. Differential diagnoses include: Migraine, neuralgia, CVA, subdural hematoma, epidural hematoma, normal pressure hydrocephalus, cluster headache, tension headache, stress headache, rebound headache, migraine headache, temporal arteritis, coma, sinus headache, meningitis, encephalitis, hypertensive emergency, hypertensive headache, hydrocephalus, space-occupying lesion. The results of pertinent diagnostic studies and exam findings were discussed. The patient s diagnosis and plan of care were discussed with the patient and present family. The patient and/or present family expressed understanding of the diagnosis and plan. The nurse was instructed to provide written instructions and appropriate follow-up information. The patient understands their need and responsibility to obtain additional follow-up as instructed. The risks of medications administered and prescribed were discussed with the patient and family present. Patient was instructed to return to the emergency department immediately should the symptoms return or worsen. (Noé Smith) Discharge Plan - Discharge Clinical Impression: Headache Disposition: Elopement Prescriptions: No Action atorvastatin 80 mg tablet 80 mg PO DAILY losartan 100 mg tablet 100 mg PO DAILY metformin 500 mg tablet 500 mg PO BID ondansetron 4 mg tablet,disintegrating 4 mg PO Q8H PRN (Reason: Nausea) Qty: 20 RF: 0 tramadol 50 mg tablet 50 mg PO Q6H PRN (Reason: Severe Pain (7-10)) Qty: 14 RF: 0 Referrals: Pcp-Md Mackey MD [Primary Care Provider] - Print Language: Solomon Islander Dictated By: Noé Smith DO Signed By: Noé Smith DO 10/15/22 0501 DD/ 17 TD/TT: 10/13/222117 Institutional Asset Manager: DELVIN cc: PCPNO* Pcp-Md MD CRISTINA Mackey Physician Trevon Degroot2023-02-21T21:18:00P.EDAVA vailable for patient [id number] [facility]
[2023-10-16 19:41] LABS: Protime INR 1.01
[2023-10-16 19:42] LABS: Absolute Lymphocytes (CBC) 3.8 K/uL (0.7-4.9); Hematocrit 40.6 % (39.6-49.0); MCV 90.8 fL (80-100); MPV 8.3 fL (7.6-11.3); Platelets 190 thou/uL (152-406); RBC Red Blood Cell Count 4.47 M/uL (4.33-5.43)
[2023-10-16 19:52] LABS: ALT/SGPT 31 U/L (16-61); AST/SGOT 20 U/L (15-37); Albumin 3.4 g/dL (3.4-5.0); Alkaline Phosphatase 101 U/L (45-117); BUN Blood Urea Nitrogen 9 mg/dL (7-18); Bicarbonate 22 mEq/L (21-32); Bilirubin Total 0.2 mg/dL (0.2-1.0); Glomerular Filtration Rate 106 ml/min (=/>90); Glucose Level 109 mg/dL (74-106); Magnesium 2.1 mg/dL (1.6-2.4); Potassium 3.6 mEq/L (3.5-5.1); Protein, Total 7.7 g/dL (6.4-8.2); Sodium Level 138 mEq/L (136-145)
[2023-10-16 19:57] LABS: Bilirubin Direct < 0.1 mg/dL (0-0.2); Bilirubin Indirect, Calculated ND mg/dL (0.2-0.8)
--- NOTE | 2023-10-16 20:17 | RAD REPORT ---
[facility] CLINICAL HISTORY: right leg swelling COMPARISON: Chest Single View dated 04/13/2020; CHEST SINGLE VIEW dated 05/13/2015; CHEST PA AND LAT 2 VIEW dated 10/06/2011 TECHNIQUE: Portable AP view of the chest. FINDINGS: The lungs are clear. No pneumothorax or effusion. The cardiomediastinal contours are unre markable. IMPRESSION: No acute cardiopulmonary process.
[2023-10-16 20:23] LABS: NT PRO-BNP 11 pg/mL (<125); Troponin High Sensitivity 9.6 pg/mL (<58.9)
--- NOTE | 2023-10-16 20:24 | RAD REPORT ---
EXAM DESCRIPTION: US - Extremity Venous Uni Ltd - 10/16/2023 8:00 pm CLINICAL HISTORY: Pain, swelling COMPARISON: None. TECHNIQUE: Real-time sonographic evaluation of the right lower extremity deep venous system was perf ormed. FINDINGS: Normal compressibility, flow augmentation, phasic flow and spontaneous flow is identified in the right lower extremity deep venous system. No intraluminal filling defects seen. IMPRESSION: No DVT in the right lower extremity.
--- NOTE | 2023-10-16 20:36 | RAD REPORT ---
EXAM DESCRIPTION: US - Lower Extremity Artery Uni Ltd - 10/16/2023 8:04 pm CLINICAL HISTORY: Pain;Swelling COMPARISON: No comparisons TECHNIQUE: Right lower extremity arterial Doppler examination was performed with waveform tracing. FINDINGS: Triphasic waveforms are seen the right common femoral artery, and again along the popliteal history. Monophasic waveforms along the superficial femoral, posterior tibial, and dorsalis pedis arteries. Pr onounced velocity elevation along the mid and to lesser extent proximal SFA, with significant velocit y reduction along the distal SFA. IMPRESSION: Moderate peripheral vascular disease, with suspected focal stenosis along the distal SFA , which was not focally demonstrated on ultrasound. Additional evaluation by CT angiogram with extrem ity Runoff may be helpful if clinically indicated.
--- NOTE | 2023-10-16 20:53 | ER ---
Nurse's Notes [facility] Name: Osman Prasad Age: 58 yrs Sex: Male : 1965 Arrival Date: 10/16/2023 Time: 18:13 Bed 14 Private MD: Gala Puga Diagnosis: Peripheral vascular disease, unspecified;Pain in right lower leg Presentation: 10/16 18:20 Chief complaint: Patient states: "My right legs been swollen and has been hurting a lot rs5 over the past week or so. I've had ballons placed in this leg before for blockages". 18:20 Coronavirus screen: At this time, the client does not indicate any symptoms associated rs5 with coronavirus-19. Ebola Screen: No symptoms or risks identified at this time. Initial Sepsis Screen: Does the patient meet any 2 criteria? No. Patient's initial sepsis screen is negative. Does the patient have a suspected source of infection? No. Patient's initial sepsis screen is negative. Risk Assessment: Do you want to hurt yourself or someone else? Patient reports no desire to harm self or others. Onset of symptoms was October 09, 2023. 18:20 Method Of Arrival: Wheelchair rs5 18:20 Acuity: ISIS 3 rs5 Historical: - Allergies: 18:32 No Known Allergies; rs5 - PMHx: 18:32 Hypertension; Hypercholesterolemia; Diabetes mellitus; blockage in right leg; rs5 - PSHx: 18:32 ballon placed in right leg; rs5 - Immunization history:: Adult Immunizations unknown. - Social history:: Smoking status: Patient reports the use of cigarette tobacco products, smokes one-half pack cigarettes per day. Screenin:27 [facility] ED Fall Risk Assessment (Adult) History of falling in the last 3 months, mb9 including since admission No falls in past 3 months (0 pts) Confusion or Disorientation No (0 pts) Intoxicated or Sedated No (0 pts) Impaired Gait No (0 pts) Mobility Assist Device Used No (0 pt) Altered Elimination No (0 pt) Score/Fall Risk Level 0 - 2 = Low Risk Oriented to surroundings, Maintained a safe environment, Educated pt \\T\\ family on fall prevention, incl call for assistance when getting out of bed. Abuse screen: Denies threats or abuse. Nutritional screening: No deficits noted. Tuberculosis screening: No symptoms or risk factors identified. Assessment: 19:24 General: Appears in no apparent distress. Behavior is calm, cooperative. Pain: mb9 Complains of pain in right leg Pain does not radiate. Pain currently is 8 out of 10 on a pain scale. Quality of pain is described as throbbing. Neuro: Darby Agitation-Sedation Scale (RASS): 0 - Alert and Calm Level of Consciousness is awake, alert, obeys commands, Oriented to person, place, time, situation, Appropriate for age. Cardiovascular: Patient's skin is warm and dry. Cardiovascular: Pulses are absent in bilateral radial, brachial, femoral, popliteal, posterior tibial and and dorsalis pedis arteries. Respiratory: Denies shortness of breath. GI: No signs and/or symptoms were reported involving the gastrointestinal system. : No signs and/or symptoms were reported regarding the genitourinary system. EENT: No signs and/or symptoms were reported regarding the EENT system. Derm: Skin is pink, warm \\T\\ dry. Musculoskeletal: Range of motion: intact in all extremities. 20:05 Reassessment: Pt states, "I want to leave. I'll sign AMA forms but I want to go home." mb9 CLAIRE, Shirley, notified. TAYLOR Watsno at bedside speaking with pt. 20:55 Reassessment: No changes from previously documented assessment. Patient and/or family mb9 updated on plan of care and expected duration. Pain level reassessed. Patient is alert, oriented x 3, equal unlabored respirations, skin warm/dry/pink. Vital Signs: 18:20 BP 114 / 71; Pulse 80; Resp 17; Pulse Ox 99% on R/A; rs5 20:21 BP 117 / 64; Pulse 84; Resp 18; Pulse Ox 100% ; Weight 88.45 kg; Height 5 ft. 8 in. ; mb9 20:21 Body Mass Index 29.65 (88.45 kg, 172.72 cm) mb9 ED Course: 18:17 Patient arrived in ED. mr 18:18 Gala Puga is Private Physician. mr 18:20 Bernabe Kiran, RN is Primary Nurse. rs5 18:23 Palomo Watson PA is PHCP. cp 18:23 Chaka Cunningham MD is Attending Physician. cp 18:31 Triage completed. rs5 19:24 Arm band placed on. mb9 19:27 Patient taken to ultrasound. via wheelchair. mb9 19:27 Placed in gown. Bed in low position. Call light in reach. Side rails up X 1. Client mb9 placed on continuous cardiac and pulse oximetry monitoring. NIBP monitoring applied. monitoring engineer on. 19:27 Inserted saline lock: 20 gauge in right antecubital area, using aseptic technique. mb9 19:36 XRAY Chest (1 view) In Process Unspecified. EDMS 19:41 Ventura Edouard MD is Attending Physician. cp 20:03 US Extremity Venous Unilateral Ltd In Process Unspecified. EDMS 20:06 US LE Artery Uni Ltd In Process Unspecified. EDMS 20:56 No provider procedures requiring assistance completed. IV discontinued, intact, mb9 bleeding controlled, No redness/swelling at site. Pressure dressing applied. Administered Medications: 19:24 Drug: Ketorolac IVP 15 mg IVP once Route: IVP; Site: right antecubital; mb9 20:40 Follow up: Response: No adverse reaction mb9 Medication: 19:27 VIS not applicable for this client. mb9 Outcome: 20:52 Discharge ordered by MD. cp 21:09 Discharged to home ambulatory, mb9 21:09 Condition: stable 21:09 Discharge instructions given to patient, Instructed on discharge instructions, follow up and referral plans. Demonstrated understanding of instructions, follow-up care, 21:09 Patient left the ED. mb9 Signatures: Dispatcher [employer] EDRI Samina Perez, Reg Reg mr Palomo Wtason PA PA cp Breneman, Mary Beth RN RN mb9 Bernabe Kiran RN RN rs5
--- NOTE | 2023-10-16 20:53 | EDPHYS ---
Physician Documentation [facility] Name: Osman Prasad Age: 58 yrs Sex: Male : 1965 Arrival Date: 10/16/2023 Time: 18:13 Bed 14 Private MD: Gala Puga ED Physician Ventura Edouard HPI: 10/16 19:10 This 58 yrs old Male presents to ER via Wheelchair with complaints of Leg cp Swelling. 19:10 The patient presents with pain, swelling, tenderness. The complaints affect the right cp leg. Context: history of peripheral artery disease. Onset: The symptoms/episode began/occurred chronic, worse over past 1-2 weeks. Modifying factors: the symptoms are aggravated by ambulating. 19:10 Associated signs and symptoms: Pertinent negatives fever, warmth, chest pain, shortness cp of breath. Patient reports past surgical history of balloon angioplasty of right leg. Historical: - Allergies: 18:32 No Known Allergies; rs5 - PMHx: 18:32 Hypertension; Hypercholesterolemia; Diabetes mellitus; blockage in right leg; rs5 - PSHx: 18:32 ballon placed in right leg; rs5 - Immunization history:: Adult Immunizations unknown. - Social history:: Smoking status: Patient reports the use of cigarette tobacco products, smokes one-half pack cigarettes per day. ROS: 19:15 Constitutional: Negative for body aches, chills, fever, poor PO intake, cp 19:15 Eyes: Negative for injury, pain, redness, and discharge, cp 19:15 Neck: Negative for pain with movement, pain at rest, stiffness, 19:15 Cardiovascular: Negative for chest pain, edema, palpitations, 19:15 Respiratory: Negative for cough, shortness of breath, wheezing, 19:15 Abdomen/GI: Negative for abdominal pain, vomiting, diarrhea, constipation, 19:15 Back: Negative for pain at rest, pain with movement, 19:15 MS/extremity: Positive for pain, of the right leg, Negative for injury or acute deformity, decreased range of motion, 19:15 Skin: Negative for cellulitis, rash, 19:15 Neuro: Negative for altered mental status, dizziness, headache, weakness, 19:15 All other systems are negative, Exam: 19:20 Constitutional: The patient appears in no acute distress, alert, awake, cp non-diaphoretic, non-toxic, well developed, well nourished, smells of alcohol, uncomfortable, 19:20 Head/Face: Normocephalic, atraumatic. cp 19:20 Eyes: Periorbital structures: appear normal, Conjunctiva: normal, no exudate, no cp injection, Sclera: no appreciated abnormality, Lids and lashes: appear normal, bilaterally, 19:20 ENT: External ear(s): are unremarkable, Nose: is normal, Mouth: Lips: moist, Oral mucosa: pink and intact, moist, Posterior pharynx: Airway: no evidence of obstruction, patent, 19:20 Chest/axilla: Inspection: normal, Palpation: is normal, no crepitus, no tenderness, 19:20 Cardiovascular: Rate: normal, Rhythm: regular, Edema: is not appreciated, JVD: is not appreciated, 19:20 Respiratory: the patient does not display signs of respiratory distress, Respirations: normal, no use of accessory muscles, no retractions, labored breathing, is not present, Breath sounds: are clear throughout, no decreased breath sounds, no stridor, no wheezing, 19:20 Abdomen/GI: Inspection: abdomen appears normal, Palpation: abdomen is soft and non-tender, in all quadrants, 19:20 Back: pain, is absent, ROM is normal, 19:20 Musculoskeletal/extremity: Extremities: grossly normal except: noted in the right lower cp leg: pain, tenderness, There is no evidence of decreased ROM, ROM: full active range of motion, in the right leg, Pulses: noted to be 2+ in the right dorsalis pedis artery, the right leg Sensation intact. 19:20 Skin: cellulitis, no rash present. 19:20 Neuro: Orientation: to person, place \T\ time. Mentation: is normal, Vital Signs: 18:20 BP 114 / 71; Pulse 80; Resp 17; Pulse Ox 99% on R/A; rs5 20:21 BP 117 / 64; Pulse 84; Resp 18; Pulse Ox 100% ; Weight 88.45 kg; Height 5 ft. 8 in. ; mb9 20:21 Body Mass Index 29.65 (88.45 kg, 172.72 cm) mb9 MDM: 18:23 Patient medically screened. cp 20:00 Differential diagnosis: sciatica, dvt, arterial occlusion, cellulitis. cp 20:52 Patient medically screened. 20:52 Data reviewed: vital signs, nurses notes, lab test result(s), EKG, radiologic studies, cp plain films, ultrasound. 20:52 I considered the following discharge prescriptions or medication management in the emergency department Medications were administered in the Emergency Department. See MAR. Counseling: I had a detailed discussion with the patient and/or guardian regarding the historical points, exam findings, and any diagnostic results supporting the discharge/admit diagnosis, lab results, radiology results, the need for outpatient follow up, vascular, to return to the emergency department if symptoms worsen or persist or if there are any questions or concerns that arise at home, smoking cessation. Response to treatment: the patient's symptoms have mildly improved after treatment, and as a result, I will discharge patient. 10/16 19:05 Order name: Basic Metabolic Panel; Complete Time: 20:44 cp 10/16 20:44 Interpretation: GLUC 109; CA 8.2; Reviewed. 10/16 19:05 Order name: CBC with Diff; Complete Time: 20:04 cp 10/16 19:05 Order name: LFT's; Complete Time: 20:44 cp 10/16 19:05 Order name: Magnesium; Complete Time: 20:44 cp 10/16 19:05 Order name: NT PRO-BNP; Complete Time: 20:44 cp 10/16 19:05 Order name: PT-INR; Complete Time: 20:04 cp 10/16 19:05 Order name: Troponin HS; Complete Time: 20:44 cp 10/16 19:05 Order name: XRAY Chest (1 view); Complete Time: 20:44 cp 10/16 19:05 Order name: Extremity Venous Unilateral Ltd; Complete Time: 20:44 cp 10/16 19:05 Order name: LE Artery Uni Ltd; Complete Time: 20:44 cp 10/16 19:05 Order name: Cardiac monitoring; Complete Time: 19:06 cp 10/16 19:05 Order name: IV Saline Lock; Complete Time: 20:12 cp 10/16 19:05 Order name: Labs collected and sent; Complete Time: 20:12 cp 10/16 19:05 Order name: O2 Per Protocol; Complete Time: 19:06 cp 10/16 19:05 Order name: O2 Sat Monitoring; Complete Time: 19:06 cp Administered Medications: 19:24 Drug: Ketorolac IVP 15 mg IVP once Route: IVP; Site: right antecubital; mb9 20:40 Follow up: Response: No adverse reaction mb9 Disposition Summary: 10/16/23 20:52 Discharge Ordered Notes: Location: Home cp Problem: an ongoing problem cp Symptoms: have improved cp Condition: Stable cp Diagnosis - Peripheral vascular disease, unspecified cp - Pain in right lower leg cp Followup: cp - With: Private Physician - When: 2 - 3 days - Reason: Recheck today's complaints Discharge Instructions: - Discharge Summary Sheet cp - Peripheral Vascular Disease cp - Steps to Quit Smoking cp - Aspirin and Your Heart cp - Managing the Challenge of Quitting Smoking cp Forms: - Medication Reconciliation Form cp - Thank You Letter cp - Antibiotic Education cp - Prescription Opioid Use cp - Patient Portal Instructions cp - Leadership Thank You Letter cp Addendum: 10/18/2023 06:58 Co-signature as Attending Physician, Ventura Edouard MD I reviewed the patient's care r t provided by the Advanced Practice Provider and agree with the diagnosis and treatment plan. Signatures: Dispatcher [employer] EDMS Palomo Watson PA PA cp Samina Watson RN RN mb9 Ventura Edouard MD MD rt Bernabe Kiran RN RN rs5 Corrections: (The following items were deleted from the chart) 10/16 20:21 19:05 EKG - Nurse/Tech ordered. cp mb9 20:44 20:44 Reviewed. cp cp
[2023-10-16 21:16] VITALS: BP 117/64; O2SAT 100
== END ==
LOC: ER 18:13
DX: I73.9 Peripheral vascular disease, unspecified (principal); F17.210 Nicotine dependence, cigarettes, uncomplicated
CPT/HCPCS: 36415; 71045; 80048; 80076; 83735; 83880; 84484; 85025; 85610; 93926; 93971; 96374; 99285